=== PATIENT | female | born 1955 | race Caucasian/White ===

== ENCOUNTER 2022-03-28 21:49 | Emergency (ER) | payer MEDICAID, SELFPAY ==
[2022-03-28 21:51] VITALS: BP 183/95; PULSE 101; RESP 18; TEMP 36.7; O2SAT 99; BMI 22.7
[2022-03-28 22:05] VITALS: BMI 25.7
--- NOTE | 2022-03-28 22:19 | PC.NURSE ---
Patient is in with . Patient is currently holding pressure to her nose after blowing it to clear a blood clot and applying afrin spray per md instruction.
--- NOTE | 2022-03-28 22:22 | HMH.EDGENADL ---
Discharge Plan Disposition Patient Disposition: Home, Self-Care Condition: Good Referrals Follow up/Referrals: Provider,Referral, [Primary Care Provider] - See instructions Activity Restrictions/Add. Instructions Additional Instructions/Restrictions: Follow-up with your primary care provider regarding this visit to the emergency department as needed. If you begin to bleed, use Afrin spray as you did today. Blow clots out of whichever side is bleeding and spray Afrin into your nose and hold pressure for 10 to 15 minutes. If you are having hemorrhagic, gloria bleeding that is bright red, return to the emergency department promptly for further evaluation. Clinical Impressions Clinical Impression: Epistaxis Discharge ED Provider: Christian Kidd General Adult HPI General Chief complaint: Epistaxis Stated complaint: NOSE BLEED Time Seen by Provider: 03/28/22 22:00 Mode of Arrival: Wheelchair Source of Information: Patient Limitations: No Limitations Description of Symptoms (Recalled from ER Triage Doc. by RN): pt c/onose bleed since noon today with a brief pause between until 2 and 4pm the pt states that there was no trauma but she is on plavix and has not been able to stop the bleeding but also states that it seems to be starting to clot History of Present Illness HPI narrative: This is a 66-year-old female with history of peripheral arterial disease on aspirin and Plavix who is presenting with epistaxis. Patient states that approximately 10 hours prior to arrival she stood up from her chair, had dripping from her nose which she assumed was sinuses, then realized it was blood. Has been trying to hold pressure since that time, has not had relief of epistaxis. Denies nausea, vomiting, trauma, lightheadedness, shortness of breath, chest pain, or any other concerning symptoms. Related Data Allergies Allergy/AdvReac Type Severity Reaction Status Date / Time No Known Allergies Allergy Verified 03/28/22 22:06 [facility] Disclaimer: The information contained in this section may have been updated after the patient was seen, as this information can be updated by other users. Social History Smoking Status: Former smoker alcohol intake: never current occupational status: unemployed Travel in the last 8 weeks: None ROS Obtained: Yes All systems reviewed & no additional complaints except as documented Physical Exam General General appearance: alert and in no apparent distress Head Head exam: atraumatic, normocephalic and normal inspection Eye Eye exam: Present normal appearance, PERRL and EOMI ENT ENT exam: Present normal exam, mucous membranes moist, TM's normal bilaterally and normal external ear exam; Absent normal oropharynx Expanded ENT Exam Nasal speculum exam: Left: epistaxis and Right: normal Mouth exam: Present other (Venous blood in posterior oropharynx) Neck Neck exam: Present normal inspection, full ROM and trachea midline; Absent meningismus or lymphadenopathy Chest Chest inspection: Present normal inspection and symmetric chest wall rise; Absent tenderness Respiratory Respiratory exam: Present normal lung sounds bilaterally; Absent respiratory distress Cardiovascular Cardiovascular exam: Present regular rate and normal rhythm; Absent JVD Abdominal Exam Abdominal exam: Present soft and normal bowel sounds; Absent distention, tenderness or guarding Extremities Exam Extremities exam: Present normal inspection, full ROM and normal capillary refill; Absent calf tenderness Back Exam Back exam: Present normal inspection; Absent tenderness Neurological Exam Neurological exam: Present alert and oriented X3 Psychiatric Psychiatric exam: Present normal affect and normal mood Skin Skin exam: Present warm, dry, intact and normal color Lymphatic Lymphatic Findings: no adenopathy Medical Decision Making Medical Records Medical records reviewed: Yes I reviewed the patient's medical records. Jose Jean P
[2022-03-28 23:07] VITALS: BP 178/85; PULSE 89; RESP 18; TEMP 36.6; O2SAT 99
== END 2022-03-28 23:09 | disposition home or self-care (01) ==
PROVIDERS: Emergency Provider Emergency Medicine
DX: R04.0 Epistaxis (principal); I73.9 Peripheral vascular disease, unspecified; Z79.01 Long term (current) use of anticoagulants; Z79.82 Long term (current) use of aspirin; Z87.891 Personal history of nicotine dependence
CPT/HCPCS: 99283

== ENCOUNTER 2024-12-06 15:47 | Inpatient (IN) | payer MEDICARE, MEDICAID, SELFPAY ==
--- NOTE | 2024-12-06 15:51 | ECG_ITS ---
APPROVED REPORT Exam: Resting ECG HR:106 bpm ECG Measurements Heart Rate 106 AXES OH 108 P 45 QRSd 86 QRS -33 QT 353 T 63 QTc 415 Conclusion SINUS TACHYCARDIA WITH SHORT OH INTERVAL LEFT AXIS DEVIATION [QRS AXIS < -30] ABNORMAL ECG UNCONFIRMED REPORT Sinus tachycardia. Slight ST depressions in V2, V3 but no reciprocal changes. Does not meet STEMI criteria Electronically signed by : NICOLAS GARCIA, 12/07/2024 14:51:21
[2024-12-06 15:56] VITALS: BP 247/133; PULSE 105; RESP 18; TEMP 36.8; O2SAT 99; BMI 24.2
--- NOTE | 2024-12-06 16:01 | XR_ITS ---
PROCEDURE INFORMATION: Exam: XR Chest Exam date and time: 12/06/2024 4:21 PM Age: 69 years old Clinical indication: Pain; Angina pectoris; Additional info: Cp TECHNIQUE: Imaging protocol: Radiologic exam of the chest. Views: 1 view. COMPARISON: CT ANGIO CHEST 12/06/2024 4:19 PM FINDINGS: Lungs: Unremarkable. No consolidation. Pleural spaces: Unremarkable. No pleural effusion. No pneumothorax. Heart/Mediastinum: Unremarkable. No cardiomegaly. Bones/joints: Unremarkable. IMPRESSION: No acute findings.
--- NOTE | 2024-12-06 16:03 | ED_ITS ---
Discharge Plan Disposition Patient Disposition: Admitted Condition: Fair Clinical Impressions Clinical Impression: Hypertensive emergency Discharge ED Provider: Ganga Khan HPI <Madisyn Cameron APRN - Last Filed: 12/06/24 19:05> General Chief Complaint: Chest Pain Stated Complaint: Chest Pain Time Seen by Provider: 12/06/24 15:51 History of Present Illness HPI narrative: patient is a 69-year-old female PMHx DVTs who presents to the ED for complaints of chest pain x 4 days that is intermittent in nature, feels like a pressure. She arrived via EMS, and route had aspirin and nitro, patient states her chest pain resolved after the nitro however has returned since being in the ED. She denies any previous cardiac history. Does not take any daily medications. Denies being on a blood thinner. Patient has not been evaluated for this before. Related Data Home Medications ?Medication ?Instructions ?Recorded ?Confirmed No Known Home Medications 12/06/2411/19 Allergies Allergy/AdvReac Type Severity Reaction Status Date / Time No Known Allergies Allergy Verified 12/06/24 18:19 PFSH <Madisyn Cameron APRN - Last Filed: 12/06/24 19:05> [facility] Disclaimer: The information contained in this section may have been updated after the patient was seen, as this information can be updated by other users. Medical History (Updated 12/06/24 @ 18:18 by Cande Piña RN) History of peripheral arterial disease History of DVT (deep vein thrombosis) Surgical History (Updated 12/06/24 @ 18:19 by Cande Piña RN) History of left below knee amputation Family History (Updated 12/06/24 @ 18:43 by Cande Piña RN) Other Family history of PA (myocardial infarction) Family history of cancer Family history of coronary artery disease Family history of stroke Social History (Updated 12/06/24 @ 18:44 by Cande Piña RN) Smoking Status: Current every day smoker alcohol intake: never current occupational status: unemployed Travel in the last 8 weeks?: None Have you lived/traveled outside [place] in past 30 days?: No Contact w/someone who lives/traveled outside US past 30 days?: No Exposure to someone with infectious disease in past 14 days?: No Do you have a fever (greater than 100.4 F or 38 C)?: No Have you tested positive for COVID-19?: No Exposed to someone with COVID-19 in past 14 days?: No Do you have a sore throat?: No Do you have a cough?: No Do you have any weakness?: No Do you have any diarrhea?: No Are you experiencing any unusual bleeding?: No Do you have any muscle aches/pain?: No Do you have any abdominal pain?: No Are you experiencing loss of taste or smell?: No <Madisyn Cameron APRN - Last Filed: 12/06/24 19:05> ROS Obtained: Yes Systems reviewed as appropriate & no additional complaints except as documented Physical Exam <Madisyn Cameron APRN - Last Filed: 12/06/24 19:05> General General appearance: alert and in no apparent distress Head Head exam: atraumatic Eye Eye exam: Present PERRL and EOMI Neck Neck exam: Present full ROM Respiratory Respiratory exam: Present normal lung sounds bilaterally; Absent respiratory distress Cardiovascular Cardiovascular exam: Present regular rate Abdominal Exam Abdominal exam: Present soft; Absent tenderness Extremities Exam Extremities exam: Present full ROM Back Exam Back exam: Present normal inspection and full ROM Neurological Exam Neurological exam: Present alert and oriented X3 Skin Skin exam: Present warm and dry HEART Score <Madisyn Cameron APRN - Last Filed: 12/06/24 19:05> HEART Score History (anamnesis): Moderately suspicious ECG: Non-specific disturbance Age: >65 years Risk factors: 1-2 risk factors Troponin: 1-3x normal limit HEART Score: 6 <Ganga Khan MD - Last Filed: 12/06/24 18:07> HEART Score HEART Score assessment performed?: Yes HEART Score: 7 Procedures <Ganga Khan MD - Last Filed: 12/06/24 18:07> Limited Ultrasound Interpretation:: Limited cardiac ultrasound Indication: Chest pain Identified cardiac views: -Cardiac parasternal long axis -Cardiac parasternal short axis -Cardiac apical four-chamber -Cardiac subxiphoid Findings: -Cardiac activity present, however left ventricular ejection fraction appears mildly reduced -Wall motion grossly normal -Pericardial effusion absent -Right heart strain absent Impression: - From above Images were saved to permanent archive The study was technically adequate CPT: 05495 This study was performed by me, and I personally interpreted all images/videos. Based on my clinical judgement, these images were adequate/inadequate and did/did not necessitate further imaging. Critical Care <Ganga Khan MD - Last Filed: 12/06/24 18:07> Critical Care Time Critical Care Time: Yes Attestation: On 12/06/24, the high probability of a clinically significant, sudden or life threatening deterioration of the following system(s) required my full and direct attention, intervention and personal management. The time I documented below is in addition to time spent performing reported procedures but includes the following listed in this critical care notation. Total Time Total Critical Care Time: 35 Medical Decision Making <Madisyn Cameron APRN - Last Filed: 12/06/24 19:05> Jose Inquiry Pt receiving controlled substance: No Vital Signs Vital Signs: 12/06/24 15:56 12/06/24 15:56 12/06/24 16:13 Temperature 98.3 F 98.3 F Temperature Source Oral Pulse Rate 105 H Pulse Rate [Right] 105 H Respiratory Rate 18 18 Blood Pressure 247/133 H 227/114 H Blood Pressure [Right Arm] 247/133 H Blood Pressure Mean [Right Arm] 171 Blood Pressure Source Blood Pressure Position 02 Sat by Pulse Oximetry 99 99 Oxygen Delivery Method 12/06/24 17:54 12/06/24 17:54 Temperature 98.0 F Temperature Source Oral Pulse Rate 110 H 108 H Pulse Rate [Right] Respiratory Rate 20 Blood Pressure 175/110 H Blood Pressure [Right Arm] Blood Pressure Mean [Right Arm] Blood Pressure Source Automatic Cuff Blood Pressure Position Sitting 02 Sat by Pulse Oximetry Oxygen Delivery Method Room Air Lab Data Labs: Lab Results 12/06/24 16:00: WBC 8.9, RBC 5.43 H, Hgb 14.6, Hct 46.3, MCV 85.3, MCH 26.9 L, M CHC 31.5 L, RDW 15.2, Plt Count 328, MPV 10.7 H, Neut % (Auto) 65.8, Lymph % (Auto) 25.3, [place] % (Auto) 5.7, Eos % (Auto) 1.4, Baso % (Auto) 1.6, Neut # (Auto) 5.8, Lymph # (Auto) 2.3, [place] # (Auto) 0.5, Eos # (Auto) 0.1, Baso # (Auto) 0.1, Sodium 138, Potassium 4.2, Chloride 101, Carbon Dioxide 24, Anion Gap 17.2 H, BUN 17, Creatinine 1.00, Estimated Creat Clear 59, Estimated GFR 55 L, Est GFR ( Amer) 67, Glucose 142 H, Calcium 9.9, Total Bilirubin 0.6, AST 28, ALT 15, Alkaline Phosphatase 164 H, Troponin I 0.43 H, NT-Pro-B Natriuret Pep 2060 H, Total Protein 9.5 H, Albumin 5.0, Globulin 4.5 H, Albumin/Globulin Ratio 1.1 12/06/24 16:00 12/06/24 16:00 Response Orders (Tests/Meds): ED MEDICATIONS Generic Name Dose Route Start Last Admin Trade Name Freq PRN Reason Stop Dose Admin Acetaminophen 650 mg 12/06/24 18:10 Acetaminophen 325mg Tab PO 01/05/25 18:09 Q4HP PRN Fever or Mild Pain (1-3) Carvedilol 12.5 mg 12/06/24 17:45 12/06/24 18:36 Carvedilol 12.5mg Tablet PO 01/05/25 17:44 12.5 mg BID ELAINE Administration Enoxaparin Sodium 40 mg 12/07/24 09:00 Enoxaparin 40mg/0.4ml Syringe SUBCUT 01/06/25 08:59 DAILY ELAINE Sodium Nitroprusside 50 mg/ 252 mls @ 6.173 mls/hr 12/06/24 17:00 12/06/24 18:50 Dextrose IV 01/05/25 16:59 0.3 mcg/kg/min .Q24H ELAINE 6.17 mls/hr Protocol Titration 0.3 MCG/KG/MIN Ondansetron HCl 4 mg 12/06/24 18:11 Ondansetron 4mg/2ml Vial IV 01/05/25 18:10 Q6HP PRN Nausea Discontinued Medications Generic Name Dose Route Start Last Admin Trade Name Freq PRN Reason Stop Dose Admin Nitroglycerin/Dextrose 250 mls @ 1.5 mls/hr 12/06/24 16:15 12/06/24 17:02 Nitroglycerin 50mg/250ml D5w IV 01/05/25 16:14 Infused .Q24H ELAINE Titration Protocol 5 MCG/MIN Iopamidol 80 ml 12/06/24 16:18 12/06/24 16:19 Iopamidol-370 (76%);100ml Bottle IV 12/06/24 16:19 80 ml ONCE ONE Administration Labetalol HCl 5 mg 12/06/24 16:07 12/06/24 16:13 Labetalol 20mg/4ml Syringe IV 12/06/24 16:08 Not Given ONCE ONE Sodium Chloride 50 ml 12/06/24 16:18 12/06/24 16:19 0.9 % Sodium Chloride 50 Ml Vial IV 12/06/24 16:19 50 ml ONCE ONE Administration ORDERS Category Date Time Status CTA Chest [CT angio chest - dissection] Stat Cat Scan 12/06/24 16:06 Completed CXR --portable [XR chest portable] Stat Exams 12/06/24 16:01 Completed POCUS Point of Care (ER Only) Stat Exams 12/06/24 16:55 Completed BNP [NT Pro Brain Natriuretic Pep.] Stat Lab 12/06/24 16:00 Completed CBC w/Auto Diff [Complete Blood Count Auto Diff] Stat Lab 12/06/24 16:00 Completed CMP [Comprehensive Metabolic Panel] Stat Lab 12/06/24 16:00 Completed Trop I [Troponin I] Stat Lab 12/06/24 16:00 Completed Troponin I Q3H Lab 12/06/24 19:15 Ordered Troponin I Q3H Lab 12/06/24 22:15 Ordered MDM Narrative Medical Decision Narrative: In summary, patient is a 69-year-old female PMHx DVTs, HTN, HLD (has not taken daily medication since 2021) who presents to the ED for complaints of chest pain x 4 days that is intermittent in nature, feels like a pressure. She arrived via EMS, and route had aspirin and nitro, patient states her chest pain resolved after the nitro however has returned since being in the ED. She denies any previous cardiac history. Does not take any daily medications. Denies being on a blood thinner. Patient has not been evaluated for this before. She declines any additional pain medication at this time. Denies fever, chills, body aches, headache, visual changes, back pain, shortness of breath, abdominal pain, nausea, vomiting. Upon initial evaluation she is alert, oriented and cooperative. She is hypertensive with her systolic in the 200s. Her physical exam is unremarkable. Patient has a left lower extremity amputation which she states is from multiple blood clots. Differential diagnosis include ACS, dissection, pneumonia, pneumothorax, PE, infectious process, electrolyte abnormality, among others. Discussed with patient we will proceed with labs, EKG, chest x-ray. CBC unremarkable for any leukocytosis, stable H&H. CMP remarkable for anion gap 17.2, glucose 142, alk phos 164, troponin 0.43. BNP 2,060. Chest x-ray unremarkable for any acute findings. Emergent chest CTA shows no evidence of pulmonary embolus or dissection. Patient started on a nitroglycerin drip, attending consulted Dr. Munoz. Patient to be admitted to the ICU and accepted by the hospitalist. Ganga Khan MD Patient was noted to be significantly hypertensive on arrival with systolic blood pressures in the 240s and diastolic blood pressures in the 110 range. She reported that her chest pain initially improved but had returned upon arrival to the emergency department. She did receive aspirin and 1 sublingual nitroglycerin prior to arrival. She was initially started on nitroglycerin drip on arrival without improvement in her blood pressure despite up titration. Bedside cardiac ultrasound was performed by me personally. She has globally mildly reduced left ventricular ejection fraction but no pericardial effusion. No focal wall motion abnormalities. CT imaging was interpreted by me personally prior to official radiology read. No evidence of aortic dissection or other acute pathology within the lungs or chest. Chest x-ray without widening of the mediastinum. Patient's initial troponin came back elevated at 0.4. All EKGs were interpreted by me personally. EMS twelve-lead showed some depressions in V2, V3, V4 and V5 without reciprocal changes. Initial EKG showed improvement in ST depressions. Repeat EKG with posterior leads was obtained without evidence of posterior STEMI. I discussed patient's case with Dr. Munoz with cardiology who recommended switching to nitroprusside drip for tighter blood pressure control. This was ordered and improved her blood pressure to 180s systolic. Given hypertensive emergency with NSTEMI, will discuss patient's case with Dr. Santos call out for admission. He agreed to accept the patient for admission. <Ganga Khan MD - Last Filed: 12/06/24 18:07> Vital Signs Vital Signs: 12/06/24 15:56 12/06/24 15:56 12/06/24 16:13 Temperature 98.3 F 98.3 F Temperature Source Oral Pulse Rate 105 H Pulse Rate [Right] 105 H Respiratory Rate 18 18 Blood Pressure 247/133 H 227/114 H Blood Pressure [Right Arm] 247/133 H Blood Pressure Mean [Right Arm] 171 Blood Pressure Source Blood Pressure Position 02 Sat by Pulse Oximetry 99 99 Oxygen Delivery Method 12/06/24 17:54 12/06/24 17:54 Temperature 98.0 F Temperature Source Oral Pulse Rate 110 H 108 H Pulse Rate [Right] Respiratory Rate 20 Blood Pressure 175/110 H Blood Pressure [Right Arm] Blood Pressure Mean [Right Arm] Blood Pressure Source Automatic Cuff Blood Pressure Position Sitting 02 Sat by Pulse Oximetry Oxygen Delivery Method Room Air Lab Data Labs: Lab Results 12/06/24 16:00: WBC 8.9, RBC 5.43 H, Hgb 14.6, Hct 46.3, MCV 85.3, MCH 26.9 L, M CHC 31.5 L, RDW 15.2, Plt Count 328, MPV 10.7 H, Neut % (Auto) 65.8, Lymph % (Auto) 25.3, [place] % (Auto) 5.7, Eos % (Auto) 1.4, Baso % (Auto) 1.6, Neut # (Auto) 5.8, Lymph # (Auto) 2.3, [place] # (Auto) 0.5, Eos # (Auto) 0.1, Baso # (Auto) 0.1, Sodium 138, Potassium 4.2, Chloride 101, Carbon Dioxide 24, Anion Gap 17.2 H, BUN 17, Creatinine 1.00, Estimated Creat Clear 59, Estimated GFR 55 L, Est GFR ( Amer) 67, Glucose 142 H, Calcium 9.9, Total Bilirubin 0.6, AST 28, ALT 15, Alkaline Phosphatase 164 H, Troponin I 0.43 H, NT-Pro-B Natriuret Pep 2060 H, Total Protein 9.5 H, Albumin 5.0, Globulin 4.5 H, Albumin/Globulin Ratio 1.1 Response Orders (Tests/Meds): ED MEDICATIONS Generic Name Dose Route Start Last Admin Trade Name Freq PRN Reason Stop Dose Admin Acetaminophen 650 mg 12/06/24 18:10 Acetaminophen 325mg Tab PO 01/05/25 18:09 Q4HP PRN Fever or Mild Pain (1-3) Carvedilol 12.5 mg 12/06/24 17:45 12/06/24 18:36 Carvedilol 12.5mg Tablet PO 01/05/25 17:44 12.5 mg BID ELAINE Administration Enoxaparin Sodium 40 mg 12/07/24 09:00 Enoxaparin 40mg/0.4ml Syringe SUBCUT 01/06/25 08:59 DAILY ELAINE Sodium Nitroprusside 50 mg/ 252 mls @ 6.173 mls/hr 12/06/24 17:00 12/06/24 18:50 Dextrose IV 01/05/25 16:59 0.3 mcg/kg/min .Q24H ELAINE 6.17 mls/hr Protocol Titration 0.3 MCG/KG/MIN Ondansetron HCl 4 mg 12/06/24 18:11 Ondansetron 4mg/2ml Vial IV 01/05/25 18:10 Q6HP PRN Nausea Discontinued Medications Generic Name Dose Route Start Last Admin Trade Name Freq PRN Reason Stop Dose Admin Nitroglycerin/Dextrose 250 mls @ 1.5 mls/hr 12/06/24 16:15 12/06/24 17:02 Nitroglycerin 50mg/250ml D5w IV 01/05/25 16:14 Infused .Q24H ELAINE Titration Protocol 5 MCG/MIN Iopamidol 80 ml 12/06/24 16:18 12/06/24 16:19 Iopamidol-370 (76%);100ml Bottle IV 12/06/24 16:19 80 ml ONCE ONE Administration Labetalol HCl 5 mg 12/06/24 16:07 12/06/24 16:13 Labetalol 20mg/4ml Syringe IV 12/06/24 16:08 Not Given ONCE ONE Sodium Chloride 50 ml 12/06/24 16:18 12/06/24 16:19 0.9 % Sodium Chloride 50 Ml Vial IV 12/06/24 16:19 50 ml ONCE ONE Administration ORDERS Category Date Time Status CTA Chest [CT angio chest - dissection] Stat Cat Scan 12/06/24 16:06 Completed CXR --portable [XR chest portable] Stat Exams 12/06/24 16:01 Completed POCUS Point of Care (ER Only) Stat Exams 12/06/24 16:55 Completed BNP [NT Pro Brain Natriuretic Pep.] Stat Lab 12/06/24 16:00 Completed CBC w/Auto Diff [Complete Blood Count Auto Diff] Stat Lab 12/06/24 16:00 Completed CMP [Comprehensive Metabolic Panel] Stat Lab 12/06/24 16:00 Completed Trop I [Troponin I] Stat Lab 12/06/24 16:00 Completed Troponin I Q3H Lab 12/06/24 19:15 Ordered Troponin I Q3H Lab 12/06/24 22:15 Ordered MDM Narrative Medical Decision Narrative: In summary, patient is a 69-year-old female PMHx DVTs who presents to the ED for complaints of chest pain x 4 days that is intermittent in nature, feels like a pressure. She arrived via EMS, and route had aspirin and nitro, patient states her chest pain resolved after the nitro however has returned since being in the ED. She denies any previous cardiac history. Does not take any daily medications. Denies being on a blood thinner. Patient has not been evaluated for this before. She declines any additional pain medication at this time. Denies fever, chills, body aches, headache, visual changes, back pain, shortness of breath, abdominal pain, nausea, vomiting. Upon initial evaluation she is alert, oriented and cooperative. She is hemodynamically stable. Her physical exam is unremarkable. Patient has a left lower extremity amputation which she states is from multiple blood clots. Differential diagnosis include ACS, dissection, pneumonia, pneumothorax, PE, infectious process, electrolyte abnormality, among others. Discussed with patient we will proceed with labs, EKG, chest x-ray. Ganga Khan MD Patient was noted to be significantly hypertensive on arrival with systolic blood pressures in the 240s and diastolic blood pressures in the 110 range. She reported that her chest pain initially improved but had returned upon arrival to the emergency department. She did receive aspirin and 1 sublingual nitroglycerin prior to arrival. She was initially started on nitroglycerin drip on arrival without improvement in her blood pressure despite up titration. Bedside cardiac ultrasound was performed by me personally. She has globally mildly reduced left ventricular ejection fraction but no pericardial effusion. No focal wall motion abnormalities. CT imaging was interpreted by me personally prior to official radiology read. No evidence of aortic dissection or other acute pathology within the lungs or chest. Chest x-ray without widening of the mediastinum. Patient's initial troponin came back elevated at 0.4. All EKGs were interpreted by me personally. EMS twelve-lead showed some depressions in V2, V3, V4 and V5 without reciprocal changes. Initial EKG showed improvement in ST depressions. Repeat EKG with posterior leads was obtained without evidence of posterior STEMI. I discussed patient's case with Dr. Muonz with cardiology who recommended switching to nitroprusside drip for tighter blood pressure control. This was ordered and improved her blood pressure to 180s systolic. Given hypertensive emergency with NSTEMI, will discuss patient's case with Dr. Santos call out for admission. He agreed to accept the patient for admission.
--- NOTE | 2024-12-06 16:06 | CT_ITS ---
PROCEDURE INFORMATION: Exam: CTA Chest With Contrast Exam date and time: 12/06/2024 4:19 PM Age: 69 years old Clinical indication: Pain; Angina pectoris; Additional info: Cp TECHNIQUE: Imaging protocol: Computed tomographic angiography of the chest with contrast. Exam focused on the arteries. 3D rendering (Not supervised by radiologist): MIP and/or 3D reconstructed images were created by the technologist. Radiation optimization: All CT scans at this facility use at least one of these dose optimization techniques: automated exposure control; mA and/or kV adjustment per patient size (includes targeted exams where dose is matched to clinical indication); or iterative reconstruction. Contrast material: ISOVUE 370; Contrast volume: 80 ml; Contrast route: INTRAVENOUS (IV); COMPARISON: CT ANGIO CHEST 12/06/2024 4:19 PM FINDINGS: Pulmonary arteries: Normal. No pulmonary emboli. Aorta: Diffuse aortic atherosclerosis without aneurysm or acute aortic syndrome.. No aortic aneurysm. No aortic dissection. Lungs: Unremarkable. No consolidation. No masses. Pleural spaces: Unremarkable. No pneumothorax. No pleural effusion. Heart: Unremarkable. No cardiomegaly. No pericardial effusion. Coronary arteries: Moderate coronary calcium. Lymph nodes: Unremarkable. No enlarged lymph nodes. Bones/joints: Unremarkable. No acute fracture. Soft tissues: Unremarkable. IMPRESSION: 1. No evidence of pulmonary embolus or other acute process. 2. Moderate coronary calcium.
[2024-12-06 16:07] LABS: Hematocrit 46.3 % (37.0-47.0); Hemoglobin 14.6 g/dL (12.2-16.2); Immature Granulocytes % 0.2 %; Mean Corpuscular HGB Conc 31.5 g/dL (31.8-35.4); Mean Corpuscular Hemoglobin 26.9 pg (27.0-31.2); Mean Corpuscular Volume 85.3 fl (81-99); Nucleated Red Blood Cells % 0 %; Platelet Count 328 K/mm3 (142-424); Red Blood Count 5.43 M/mm3 (4.20-5.40); Red Cell Distribution Width-SD 47.7 fL; White Blood Count 8.9 K/mm3 (4.8-10.8)
--- NOTE | 2024-12-06 16:07 | PC.NURSE ---
1531 prior to patients arrival, EMS faxed over an EKG to rule out a STEMI. because they saw depression and elevation. Dr Khan looked at the ekg and advised that it was not a STEMI. Called EMS back and advised them of what Dr Khan said.
[2024-12-06 16:13] VITALS: BP 227/114
[2024-12-06 16:17] LABS: Albumin Level 5.0 g/dl (3.5-5.0); Chloride 101 mmol/L (98-107)
[2024-12-06 16:18] LABS: Potassium 4.2 mmoL/L (3.5-5.1); Sodium 138 mmol/L (136-145)
[2024-12-06] MEDS: IOPAMIDOL-370 (76%);100ML BOTTLE 80 ML IV (16:19)
[2024-12-06] MEDS: 0.9 % SODIUM CHLORIDE 50 ML VIAL IV (16:19)
[2024-12-06 16:20] LABS: Alanine Aminotransferase 15 U/L (12-78); Aspartate Amino Transferase 28 U/L (14-36); Blood Urea Nitrogen 17 mg/dl (7-17); Creatinine Clearance Estimated 59 mL/min (50-200); Creatinine,Serum 1.00 mg/dl (0.52-1.04); Estimated Glomerular Filt Rate 55 ml/min (>60); GFR (African American) 67 ML/MIN (>60)
[2024-12-06 16:21] LABS: Albumin/Globulin Ratio 1.1 (1.1-1.8); Alkaline Phosphatase 164 U/L (38-126); Anion Gap 17.2 mEq/L (5-15); Bilirubin,Total 0.6 mg/dl (0.2-1.3); Calcium 9.9 mg/dl (8.4-10.2); Carbon Dioxide 24 mmol/L (22.0-30.0); Globulin 4.5 g/dL (1.3-3.2); Glucose 142 mg/dl (74-100); Total Protein,Serum 9.5 g/dl (6.3-8.2)
--- OUTSIDE RECORDS SUMMARY | 2024-12-06 16:22 | XMS_ITS | Clinical Summary ---
[facility] Organization [facility] Address [address] [place] [address] Care Team Providers Care General Farm Manager Name Role Phone Unavailable Primary Care Provider Unavailabl e Social History Tobacco Use Types Packs/Day Years Used Date Smoking Tobacco: Never Assessed Abuse Screen Answer Date Recorded Unsafe at Home or Work/School Not on file Feels Threatened by Someone? Not on file 12/2022 Does Anyone Keep You from Co ntacting Others or Doint Things Outside the Home? Not on file 01/27/2023 Physical Sign of Abuse Present Not on file 1 Housing Stability Answer Date Recorded Current Living Arrangements Not on file 12/2022 Potentially Unsafe Housing Conditions Not on luis fernando e 01/27/2023 Family and Community Support Answer Jimenez e Recorded Help with Day-to-Day Activities Not on file 01/27/2023 Lonely or Isolated Not on file 01/27/2023 Employment Answer Date Recorded Do you want help finding or keeping work or a veena b? Not on file 01/27/2023 Disabilities Answer Date Recorded Concentrating, Remembering, or Making Decisions Difficulty Not on file 01/27/2023 Doing Errands Independently Difficulty Not on fi le 01/27/2023 Education Answer Date Recorded Help with school or training? Not on file Preferred Language Not on file 01/27/2023 Comments Unknown Sex and Gender Information Value Date Recorded Sex Assigned at Not on file Legal Sex Female 11:00 AM EDT Gender Identity Not on file Sexual Orientation Not on file Plan of Treatment Health Maintenance Due Date Last Done Comments ANNUAL PHYSICAL 1955 DXA SCAN 1957 HEPATITIS C SCREENING 1957 TDAP/TD VACCINES (1 - Tdap) 1976 MAMMOGRAM 1997 COLOGUARD 2002 COLON CANCER SCREENING 5 YEAR SIGMOIDOSCOPY 2002 COLONOSCOPY 2002 COLORECTAL CANCER SCREENING 2002 CT COLONOGRAPHY 2002 FECAL OCCULT BLOOD TEST 2002 FIT Testing (1 year) 2002 Pneumococcal Vaccine 50+ (1 of 1 - PCV) 06/22/2007 ZOSTER VACCINE (1 of 2) 06/22/2007 COVID-19 Vaccine ( - 2023- season) 2023 INFLUENZA VACCINE 01/19/2025 Insurance PAS[employer] BY [employer]
--- OUTSIDE RECORDS SUMMARY | 2024-12-06 16:22 | XMS_ITS | Clinical Summary ---
Author Organization [facility] Address [address] [place] [address] Phone Care Team Providers Care Electrocardiographic Technician Name Role Phone Nonstaff, Referring Primary Care Provider Unavai lable Allergies No known active allergies Medications REPATHA SURECLICK 140 mg/mL SubQ Pen Injector INJECT ONE (1) MILLILITER (140 MG) BY SUBCUTANEOUS ROUTE EVERY TWO (2) WEEKS IN THE ABDOMEN THIGH OR OUTER AREA OF UPPER ARM (ROTATE SITES 1 Active ergocalciferol (DRISDOL) 1,250 mcg (50,000 unit) Oral Capsule Take 50,000 Units by mouth once a week. Patient takes every . 1 Active pantoprazole (PROTONIX) 40 mg Oral Tablet, Delayed Release (E.C.) TAKE ONE (1) TABLET EVERY DAY 1 Active rosuvastatin (CRESTOR) 10 mg Oral Tablet Take 10 mg by mouth nightly. 2 Active escitalopram oxalate (LEXAPRO) 10 mg Oral Tablet 2 Active carvediloL (COREG) 12.5 mg Oral Tablet Take 12.5 mg by mouth 2 times daily. Active aspirin 81 mg Oral Tablet, Chewable Take 81 mg by mouth daily. Active HYDROcodone-cammy taminophen (NORCO) 7.5-325 mg Oral TabletIndicatio ns:S/P above knee amputation, left (HCC) Take 1-2 Tablets by mouth every 6 hours as needed for Acute Pain (R52). 30 Tablet 3 Active Active Problems Problem Noted Date Diagnosed Date Above knee amputation of left lower extremity Acute deep vein thrombosis of left popliteal vei n 02/28/2022 Acute deep vein thrombosis ( DVT) of popliteal vein of left lower extremity 02/28/2022 Critical limb ischemia of left lower extremity 1 04/22/2021 Overview (02/20/2022): Critical limb ischemia, requiring tPA lysis and anticoagulation. Continue to monitor Symptomatically improved after intervention Superficial femoral artery occlusion 02/19/2022 Atherosclerosis of [place] of extremity with rest pain 02/19/2022 Urinary retention 02/19/2022 Vascular disease 02/18/2022 Hyperlipidemia 12/06/2019 PVD (peripheral vascular disease) 12/06/2019 Overview (02/20/2022): Required interventional radiology guided tPA lysis. Clinically improved after lysis and anticoagulation. Tobacco abuse 12/06/2019 Left carotid artery stenosis 12/02/2019 Overview (12/02/2019): Added automatically from request for surgery [id number] Immunizations Immunization Administration Dates Next Due Influenza Virus Vaccine Quadrivalant, Flublok Surgical History Surgery Date Site/Laterality Comments HYSTERECTOMY ANGIOPLASTY peripheral stents bilateral COLONOSCOPY CAROTID ENDARTERECTOMY 12/06/2019 Neck/Left Left carotid endarterectomy; Surgeon: Kendall Marinelli Jr., MD; Location: [facility] MA[facility] OR; Service: Vascular IR ANGIOGRAM EXTREMITY LEFT 02/18/2022 IR ANGIOGRAM EXTREMITY LEFT 02/18/2022 Vick Torres MD [facility] IR ULTRASOUND GUIDED VASCULA R ACCESS 02/18/2022 IR ULTRASOUND GUIDED VASCULAR ACCESS 02/18/2022 Vick Torres MD [facility] IR ABDOMINAL AORTOGRAM SERIALOGRAM 02/18/2022 IR ABDOMINAL AORTOGRAM SERIALOGRAM 02/18/2022 Vick Torres MD [facility] IR TRANSCATH ARTERIAL INFUSI ON THROMBOLYSIS INITIAL TREAT 02/18/2022 IR TRANSCATH ARTERIAL INFUSION THROMBOLYSIS INITIAL TREAT 02/18/2022 Vick Torres MD [facility] IR TRANS ART OR FILEMON FOR THRO MB TREAT SUBSQ DAY FU CATH CONT INJ 02/19/2022 IR TRANS ARTERIAL OR VENOUS FOR THROMB TREAT SUBSQ DAY FU CATH CONT INJECT 02/19/2022 Vick Torres MD [facility] IR REVAS FEM POP ART UNILAT W CLIPPER AND TURNER 02/19/2022 IR REVAS FEM POP ART UNILAT W CLIPPER AND TURNER 02/19/2022 Vick Torres MD [facility] IR TRANS ART OR FILEMON FOR THRO MB SUBSQ DAY FU CATH CONT INJ+CLOS 02/19/2022 IR TRANS ART OR VENOUS FOR THROMB SUBSQ DAY FU CATH CONT INJECT AND CLOSURE 02/19/2022 Vick Torres MD [facility] IR REVAS FEM POP ART UNILAT W CLIPPER AND TURNER 02/19/2022 IR REVAS FEM POP ART UNILAT W CLIPPER AND TURNER 02/19/2022 Vick Torres MD [facility] IR FEMORAL BYPASS 03/01/2022 Leg/Left Left femoral to tibial bypass graft using insito greater saphenous vein. Thrombectomy posterior tibial artery, left deep femoral endarterectomy.; Surgeon: Matheus Menon MD; Location: [facility]; Service: Vascular ABOVE KNEE AMPUTATION 03/03/2022 Leg/Left left above the knee amputation; Surgeon: Kendall Marinelli Jr., MD; Location: [facility]; Service: General Medical History Medical History Date Comments Hyperlipidemia Hypertension Peripheral vascular disease Smoker Carotid artery disease Chronic kidney disease Family History Medical History Relation Name Comments High Blood Pressure Father High Cholesterol Father High Blood Pressure Mother High Cholesterol Mother Cancer Other whole body Cancer Sister ovarian Relation Name Status Comments Father Mother Other Sister Social History Tobacco Use Types Packs/Day Years Used Date Smoking Tobacco: Every Day Cigarettes 0.3 51.6 Started: 04/21/1973 Smokeless Tobacco: Never Tobacco Cessation:Ready to Q uit: No; Counseling Given: Yes Comments:a couple cigarettes a day Alcohol Use Standard Drinks/Week Comments Never 0 (1 standard drink = 0.6 oz pur e alcohol) AUDIT-C Answer Date Recorded Q1: How often do you have a drink containing alc ohol? Never 08/03/2020 Average Number of Drinks Not on file 021 Frequency of Binge Drinking Not on file 07/20 Overall Financial Resource Strain (CARDIA) Answe r Date Recorded How hard is it for you to pa y for the very basics like food, housing, medical care, and heating? Not hard at all 03/04/2022 Hunger Vital Sign Answer Date Recorded Within the past 12 months, y ou worried that your food would run out before you got the money to buy more. Never true 03/04/20 22 Within the past 12 months, t he food you bought just didn't last and you didn't have money to get more. Never true 03/04/2022 PRAPARE - Transportation Answer Date Re corded In the past 12 months, has l ack of transportation kept you from medical appointments or from getting medications? No 02/19 In the past 12 months, has l ack of transportation kept you from meetings, work, or from getting things needed for daily living? No 03/04/2022 Comments No Sex and Gender Information Value Date Recorded Sex Assigned at Not on file Legal Sex Female 4:44 PM EDT Gender Identity Not on file Sexual Orientation Not on file Obstetrics History Last Filed Vital Signs Vital Sign Reading Time Taken Comments Blood Pressure 200/79 05/02/2022 12:50 PM EST Pulse 77 05/02/2022 12:50 PM EST Temperature 36.9 C (98.4 F) 05/02/2022 12:45 PM EST Respiratory Rate 16 03/06/2022 5:27 PM EST Oxygen Saturation 100% 03/06/2022 5:27 PM EST Inhaled Oxygen Concentration - - Weight 68 kg (150 lb) 05/02/2022 12:45 PM EST Height 170.2 cm (5' 7 ) 05/02/2022 12:45 PM EST Body Mass Index 23.49 05/02/2022 12:45 PM EST Plan of Treatment Health Maintenance Due Date Last Done Comments Annual Wellness Exam 1960 Hepatitis C Screening 06/22/1975 Pneumococcal Vaccine 50+ (1 of 2 - PCV) 1976 Colonoscopy 2002 FIT 2002 Sigmoidoscopy 2002 Virtual Colonography 2002 Zoster (1 of 2) 06/22/2007 RSV or 60+ (1 - Risk 60-74 years 1-dose series) 2017 Cologuard 06/10/2022 06/10/2019 Colon Cancer Screening 06/10/2022 Bone Density Screening 2022 Breast Cancer Screening 11/08/2023 11/07/2021 COVID-19 Vaccine (1 - 4-25 season) 2023 Influenza Vaccine (#1) 2024 2, 01/17/2021, 03/07/2020, Additional history exists DTaP/TDaP/Td (2 - Td or Tdap) 06/07/2029 06/07/2019 Hepatitis B Vaccine Aged Out No longe r eligible based on patient's age to complete this topic Meningococcal B Vaccine Aged Out No l onger eligible based on patient's age to complete this topic Procedures Procedure Name Priority Date/Time Associated Diagnosis Comments MM MAMMO DIGITAL EMERALD SCREEN BILAT Routine 11/07/2021 12:21 PM EDT Screening mammogram, encounter for from Last 3 Months or Most Recently Relevant to Health Maintenance Results * MM MAMMO DIGITAL EMERALD SCREEN BILAT (11/07/2021 12:21 PM EDT) Anatomical Region Laterality Modality Breast Bilateral Mammography 11/16/2021 3:41 PM EDT Impressions 11/16/2021 3:41 PM EDT Negative ([id number]) ~ RECOMMENDATION: Routine screening mammogram in 1 year. ~ DISCLAIMER * Any patient with a palpable abnormality, unexplained by breast imaging, should be managed on clinical basis by the attending physician. * Breast imaging has a false negative rate of 15%. * The patient was notified by mail of the results of this examination. *The patient's information was entered into a reminder system with a target due date for the next mammogram, in accordance with the [employer] and the Society of Breast Imaging recommendations. Narrative 11/16/2021 3:41 PM EDT Procedure:MM MAMMO DIGITAL EMERALD SCREEN BILAT ~ Reason for exam: screening, asymptomatic. Z12.31-Encounter for screening mammogram for malignant neoplasm of [id number] ~ MM MAMMO DIGITAL EMERALD SCREEN BILAT Bilateral CC and MLO view(s) were taken. There are scattered fibroglandular densities. Prior study comparison: November 30, 2018. No significant interval change. ~ Procedure Note Tammy Mckee MD - 11/16/2021 Procedure:MM MAMMO DIGITAL EMERALD SCREEN BILAT ~ Reason for exam: screening, asymptomatic. Z12.31-Encounter for screening mammogram for malignant neoplasm of [id number] ~ MM MAMMO DIGITAL EMERALD SCREEN BILAT Bilateral CC and MLO view(s) were taken. There are scattered fibroglandular densities. Prior study comparison: November 30, 2018. No significant interval change. ~ IMPRESSION: Negative ([id number]) ~ RECOMMENDATION: Routine screening mammogram in 1 year. ~ DISCLAIMER * Any patient with a palpable abnormality, unexplained by breast imaging, should be managed on clinical basis by the attending physician. * Breast imaging has a false negative rate of 15%. * The patient was notified by mail of the results of this examination. *The patient's information was entered into a reminder system with atarget due date for the next mammogram, in accordance with the [employer] and the Society of Breast Imaging recommendations. Janett Fulton [facility] Final Result from Last 3 Months or Most Recently Relevant to Health Maintenance Insurance [id number] Advance Directives For more information, please contact: [phone] * Full Code (Latest Code Status on File) Date Activated Date Inactivated Comments 02/28/2022 9:04 PM 03/06/2022 10:00 PM * Full Code Date Activated Date Inactivated Comments 02/18/2022 12:17 PM 02/20/2022 8:30 PM * Full Code Date Activated Date Inactivated Comments 12/06/2019 7:53 PM 12/07/2019 1:53 PM Care Teams Electrocardiographic Technician Relationship Specialty Start Date End Date Nonstaff, Referring PCP - General 03/01/22
[2024-12-06] MEDS: NITROGLYCERIN IN 5 % DEXTROSE 250 ML 1.5 MG IV (16:29)
[2024-12-06 16:39] LABS: Troponin I 0.43 ng/ml (0.00-0.034)
--- NOTE | 2024-12-06 16:54 | ECG_ITS ---
APPROVED REPORT Exam: Resting ECG HR:95 bpm ECG Measurements Heart Rate 95 AXES GA 140 P 66 QRSd 84 QRS -43 QT 386 T 30 QTc 439 Conclusion SINUS RHYTHM LEFT AXIS DEVIATION [QRS AXIS < -30] PATTERN CONSISTENT WITH PULMONARY DISEASE MODERATE ST DEPRESSION [0.05+ mV ST DEPRESSION] ABNORMAL ECG UNCONFIRMED REPORT Normal sinus rhythm. No ST elevations or depressions Electronically signed by : NICOLAS GARCIA, 12/07/2024 14:51:42
--- NOTE | 2024-12-06 17:00 | ECG_ITS ---
APPROVED REPORT Exam: Resting ECG HR:101 bpm ECG Measurements Heart Rate 101 AXES DC 108 P 55 QRSd 86 QRS -42 QT 351 T 41 QTc 409 Conclusion SINUS TACHYCARDIA WITH SHORT DC INTERVAL LEFT AXIS DEVIATION [QRS AXIS < -30] ST DEVIATION AND MODERATE T-WAVE ABNORMALITY, CONSIDER LATERAL ISCHEMIA [-0.1+ mV T-WAVE IN I/aVL/V5/V6] ABNORMAL ECG UNCONFIRMED REPORT Posterior lead placements with V4, V5 and V6. No ST elevation or depression. Normal sinus rhythm Electronically signed by : NICOLAS GARCIA, 12/07/2024 14:52:08
--- NOTE | 2024-12-06 17:15 | PC.NURSE ---
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 States she will call back.
[2024-12-06] MEDS: NITROPRUSSIDE SODIUM 50 MG in DEXTROSE 5 % IN WATER 250 ML 6.17 MG IV (17:16)
[2024-12-06 17:37] LABS: NT Pro Brain Natriuretic Pep. 2060 pg/mL (0-125)
--- NOTE | 2024-12-06 17:53 | PC.NURSE ---
report given to GEE Castellon in the ICU
[2024-12-06 17:54] VITALS: BP 175/110; PULSE 108; PULSE 110; RESP 20; TEMP 36.7; O2SAT 98
--- NOTE | 2024-12-06 18:18 | PC.NURSE ---
Pt arrived to floor @ 1810
[2024-12-06] MEDS: CARVEDILOL 12.5MG TABLET 12.5 MG PO (18:36)
[2024-12-06 18:46] VITALS: O2SAT 96
--- NOTE | 2024-12-06 19:01 | PC.NURSE ---
Protocol CRE swab refused by pt.
[2024-12-06 20:00] VITALS: BP 156/91; PULSE 73; RESP 18; TEMP 36.7
[2024-12-06 20:51] VITALS: PULSE 64
[2024-12-06 21:00] LABS: Troponin I 2.58 ng/ml (0.00-0.034)
--- NOTE | 2024-12-06 21:23 | PC.NURSE ---
Troponin critical at 2.58. Hospitalist aware.
[2024-12-06] MEDS: ATORVASTATIN 40MG TABLET 40 MG PO (21:26)
[2024-12-06] MEDS: AMLODIPINE 10MG TABLET 10 MG PO (21:30)
--- NOTE | 2024-12-06 21:41 | ECG_ITS ---
APPROVED REPORT Exam: Resting ECG HR:67 bpm ECG Measurements Heart Rate 67 AXES NV 156 P 74 QRSd 78 QRS -50 QT 458 T 248 QTc 473 Conclusion SINUS RHYTHM LEFT AXIS DEVIATION [QRS AXIS < -30] ST DEVIATION AND MODERATE T-WAVE ABNORMALITY, CONSIDER INFERIOR ISCHEMIA [-0.1+ mV T-WAVE IN II/aVF] ABNORMAL ECG UNCONFIRMED REPORT Electronically signed by : Audie Carlton MD 12/07/2024 08:22:10
[2024-12-06 22:07] LABS: HDL Cholesterol 63 mg/dl (40-60); Triglycerides 288 mg/dl (30-150)
[2024-12-06 22:18] LABS: Cholesterol 364 mg/dl (140-200)
--- NOTE | 2024-12-06 22:19 | EXP.HP ---
History of Present Illness *Admission Date: 12/06/24 *Reason for visit:: Chest pain *History of present illness: Genny Menendez is a 69-year-old female with a medical history significant for medical nonadherence, hypertension, PAD s/p left AKA, MARY s/p left endarterectomy, current tobacco smoker (though has cut down since left AKA) presents from home after several day onset of worsening midsternal chest pain. Patient states chest pain has also been radiating down her left arm but sometimes labor get numb. She has not had chest pains like this prior. Denies shortness of breath, dizziness, fever/chills, abdominal pain. She states she used to follow with Dr. Avery in [place] before he retired, has not followed up since. He performed her 10+ stents in her left lower extremity, but ultimately needed a left AKA due to ischemia. She states she used to be a profuse smoker, but has cut down quite a bit and smokes 1 cigarette a day a few times a week. She states she does not take medications because she felt as though she can come off of them, including her antihypertensives. Upon arrival, blood pressure was 247/133 and patient was started on a heparin drip after discussing with Dr. Munoz. Other workup reveals initial troponin 0.43, BNP 2060, CTA chest without acute findings. On route, she was given aspirin and nitro which helped with chest pain. Given these findings, I discussed case with ED provider and I decided to admit patient for hypertensive emergency, NSTEMI. [facility] Disclaimer: The information contained in this section may have been updated after the patient was seen, as this information can be updated by other users. Medical History (Updated 12/06/24 @ 22:51 by Rigoberto Kat MD) History of peripheral arterial disease History of DVT (deep vein thrombosis) Surgical History (Updated 12/06/24 @ 22:51 by Rigoberto Kat MD) History of left below knee amputation Family History (Updated 12/06/24 @ 18:43 by Cande Piña, GEE) Other Family history of [place] (myocardial infarction) Family history of cancer Family history of coronary artery disease Family history of stroke Social History (Updated 12/06/24 @ 18:44 by Cande Piña RN) Smoking Status: Current every day smoker alcohol intake: never current occupational status: unemployed Travel in the last 8 weeks?: None Have you lived/traveled outside US in past 30 days?: No Contact w/someone who lives/traveled outside US past 30 days?: No Exposure to someone with infectious disease in past 14 days?: No Do you have a fever (greater than 100.4 F or 38 C)?: No Have you tested positive for COVID-19?: No Exposed to someone with COVID-19 in past 14 days?: No Do you have a sore throat?: No Do you have a cough?: No Do you have any weakness?: No Do you have any diarrhea?: No Are you experiencing any unusual bleeding?: No Do you have any muscle aches/pain?: No Do you have any abdominal pain?: No Are you experiencing loss of taste or smell?: No Other Medical History Have you received the Flu Vaccine for this season: No Have you received the Pneumonia Vaccine: No Meds Home Medications and Allergies Home Medications ?Medication ?Instructions ?Recorded ?Confirmed ?Type No Known Home Medications 12/06/24 12/06/24 History New Prescriptions to Start Prescriptions: Allergies Allergy/AdvReac Type Severity Reaction Status Date / Time No Known Allergies Allergy Verified 12/06/24 18:19 Exam Data for Last 24 hours Vital signs and Labs for Last 24 Hours: Temp Pulse Resp BP Pulse Ox O2 Del Method FiO2 98.1 F 64 18 156/91 H 96 Room Air 96 12/06/24 20:00 12/06/24 20:51 12/06/24 20:00 12/06/24 20:00 12/06/24 18:46 12/06/24 21:00 12/06/24 20:00 Laboratory Results - last 24 hr 12/06/24 16:00: WBC 8.9, RBC 5.43 H, Hgb 14.6, Hct 46.3, MCV 85.3, MCH 26.9 L, MCHC 31.5 L, RDW 15.2, Plt Count 328, MPV 10.7 H, Neut % (Auto) 65.8, Lymph % (Auto) 25.3, Nelson % (Auto) 5.7, Eos % (Auto) 1.4, Baso % (Auto) 1.6, Neut # (Auto) 5.8, Lymph # (Auto) 2.3, Nelson # (Auto) 0.5, Eos # (Auto) 0.1, Baso # (Auto) 0.1, Sodium 138, Potassium 4.2, Chloride 101, Carbon Dioxide 24, Anion Gap 17.2 H, BUN 17, Creatinine 1.00, Estimated Creat Clear 59, Estimated GFR 55 L, Est GFR ( Amer) 67, Glucose 142 H, Calcium 9.9, Total Bilirubin 0.6, AST 28, ALT 15, Alkaline Phosphatase 164 H, Troponin I 0.43 H, NT-Pro-B Natriuret Pep 2060 H, Total Protein 9.5 H, Albumin 5.0, Globulin 4.5 H, Albumin/Globulin Ratio 1.1 12/06/24 19:20: Troponin I 2.58 H, Triglycerides 288 H, Cholesterol 364 H, LDL Cholesterol Direct 226.46 H, VLDL Cholesterol 58 H, HDL Cholesterol 63 H, Cholesterol/HDL Ratio 5.8 H I & O for Last 24 hours: Intake & Output 12/03/24 12/04/24 12/05/24 12/06/24 23:59 23:59 23:59 23:59 Intake Total 144.886 / 144.886 Output Total 400 / 400 Balance -255.114 / -255.114 Weight 68.039 kg Constitutional Constitutional: no acute distress *Routine HEENT Exam Head: Present normocephalic Eye: Present EOMI and PERRL ENT: Present mucous membranes moist *Routine Neck Exam Neck: Present supple; Absent lymphadenopathy *Routine Respiratory Exam Respiratory: Present CTA bilaterally *Routine Cardiovascular Exam Cardiovascular: Present RRR *Routine Abdominal Exam Abdominal: Present soft and normoactive bowel sounds; Absent tenderness *Routine Rectal Exam Rectal:: deferred *Routine Genitalia Exam Genitalia:: deferred *Routine Extremities Exam Extremities: Absent cyanosis, clubbing or edema Comments: Left AKA with stump site. *Routine Skin Exam Skin: Present warm; Absent rash *Routine Neurological Exam Neurological: Present alert and oriented X3 Assessment and Plan *Assessment and plan (1) Hypertensive emergency: Status: Acute Category: Medical Code(s): I16.1 - Hypertensive emergency (2) PAD (peripheral artery disease): Status: Acute Category: Medical Code(s): I73.9 - Peripheral vascular disease, unspecified (3) Hx of AKA (above knee amputation): Status: Acute Category: Surgical Code(s): Z89.619 - Acquired absence of unspecified leg above knee (4) History of endarterectomy: Status: Acute Category: Surgical Code(s): Z98.890 - Other specified postprocedural states (5) Carotid artery stenosis: Status: Acute Category: Medical Code(s): I65.29 - Occlusion and stenosis of unspecified carotid artery (6) NSTEMI (non-ST elevated myocardial infarction): Status: Acute Category: Medical Code(s): I21.4 - Non-ST elevation (NSTEMI) myocardial infarction (7) Hyperlipidemia: Status: Acute Category: Medical Code(s): E78.5 - Hyperlipidemia, unspecified Plan Genny Menendez is a 69-year-old female with a medical history significant for medical nonadherence, hypertension, PAD s/p left AKA, MARY s/p left endarterectomy, current tobacco smoker (though has cut down since left AKA) presents from home after several day onset of worsening midsternal chest pain. Patient states chest pain has also been radiating down her left arm but sometimes labor get numb. She has not had chest pains like this prior. Denies shortness of breath, dizziness, fever/chills, abdominal pain. She states she used to follow with Dr. Avery in [place] before he retired, has not followed up since. He performed her 10+ stents in her left lower extremity, but ultimately needed a left AKA due to ischemia. She states she used to be a profuse smoker, but has cut down quite a bit and smokes 1 cigarette a day a few times a week. She states she does not take medications because she felt as though she can come off of them, including her antihypertensives. Upon arrival, blood pressure was 247/133 and patient was started on a nitroprusside drip after discussing with Dr. Munoz. Other workup reveals initial troponin 0.43, BNP 2060, CTA chest without acute findings. On route, she was given aspirin and nitro which helped with chest pain. Given these findings, I discussed case with ED provider and I decided to admit patient for hypertensive emergency, NSTEMI. #Hypertensive emergency #Medication nonadherence ? Presented with BP 247/[address] Munoz recommended nitroprusside drip in the ED. ? Has self discontinued antihypertensives, and all other medications, since her delineator Dr. Avery retired. ? Continue nitroprusside drip and wean as blood pressures improved, blood pressure improving. Currently 156/91, at goal for now. Will need slow reduction to avoid ischemia. ? Started carvedilol 12.5 mg twice daily in the setting of NSTEMI. ? Started amlodipine 10 mg nightly. ? Avoiding ACEi/ARB for now until bilateral renal artery stenosis is ruled out. ? Follow-up TSH, renal artery duplex. ? Follow-up ECHO. ? Cardiology consulted, pending further recommendations. ? Continuous cardiac telemetry. #Chest pain #NSTEMI type I #Hyperlipidemia #History of PAD with 10+ stents #History of left AKA #History of MARY s/p left endarterectomy ? Presented with worsening midsternal chest pain with radiation down left arm. No chest pain, shortness of breath on my evaluation, comfortable. ? Initial troponin 0.43, up trended to 2.58. EKG without acute ischemic changes. Follow serial troponins. ? Therapeutic Lovenox given prior to second troponin. ASA 325 mg given by EMS. ? Started carvedilol 12.5 mg twice daily, aspirin 81 mg, atorvastatin 80 mg. ? LDL 226, follow-up A1c, TSH, ECHO. ? Cardiology consulted, patient hesitant on [facility] but seemed ultimately agreeable. ? Elevated BNP 2015, but no signs of volume overload. #Current tobacco smoker ? Has cut down, continues to smoke. Nicotine patch daily. DNI DVT prophylaxis: Therapeutic Lovenox
[2024-12-06 22:39] LABS: Thyroid Stimulating Hormone 15.60 uIU/mL (0.465-4.68)
--- NOTE | 2024-12-06 22:45 | EXP.EVENT.NO ---
22:00 evaluated patient due to the troponin being elevated., Nurse called came over to see the patient patient is experiencing no chest pain no chest tightness twelve-lead EKG was ordered, the patient's lab also noted an increased TSH to 15 exam: Patient is alert oriented having no pain whatsoever Plan: After talking with the patient and looking at the EKG and comparing it with an earlier one. Do not feel there is any ST elevations. Will have the opponent will be repeated approximately 10 30-10 45. If the troponin continues to elevate we will recheck another twelve-lead to compare for any ST elevations. Noting I was talking to the patient she has had an amputation of the lower leg been through many stents and out catheterizations for that process. She is still a smoker large family history of cardiovascular disease and cancer. Patient stated there is no way she would ever have another catheterization done after all she has been through. We reviewed her reasons and she is steadfast at this time she would not be a cath even if she was having a heart attack
[2024-12-06 23:13] LABS: Troponin I 5.12 ng/ml (0.00-0.034)
--- NOTE | 2024-12-06 23:20 | ECG_ITS ---
APPROVED REPORT Exam: Resting ECG HR:69 bpm ECG Measurements Heart Rate 69 AXES IN 148 P 67 QRSd 76 QRS -62 QT 457 T 247 QTc 476 Conclusion SINUS RHYTHM LEFT AXIS DEVIATION [QRS AXIS < -30] PATTERN CONSISTENT WITH PULMONARY DISEASE ST DEVIATION AND MODERATE T-WAVE ABNORMALITY, CONSIDER LATERAL ISCHEMIA [-0.1+ mV T-WAVE IN I/aVL/V5/V6] ST DEVIATION AND MODERATE T-WAVE ABNORMALITY, CONSIDER INFERIOR ISCHEMIA [-0.1+ mV T-WAVE IN II/aVF] ABNORMAL ECG UNCONFIRMED REPORT Electronically signed by : Audie Carlton MD 12/07/2024 08:22:05
[2024-12-06 23:43] LABS: Free T4 (Free Thyroxine) 0.91 ng/dl (0.78-2.19)
--- NOTE | 2024-12-06 23:43 | PC.NURSE ---
Troponin critical at 5.12. EKG done. Hospitalist aware. Repeat troponin ordered for 0230.
[2024-12-07] VITALS (61 sets, daily range): BP systolic 101–191; BP diastolic 48–162; PULSE 51–90; RESP 12–22; TEMP 36.5–36.8; O2SAT 92–100; BMI 23.1
[2024-12-07 00:16] LABS: Hemoglobin A1C 5.5 % (4.0-6.0)
[2024-12-07 03:49] LABS: Troponin I 6.80 ng/ml (0.00-0.034)
--- NOTE | 2024-12-07 03:55 | ECG_ITS ---
APPROVED REPORT Exam: Resting ECG HR:67 bpm ECG Measurements Heart Rate 67 AXES NC 153 P 76 QRSd 77 QRS -37 QT 475 T 256 QTc 491 Conclusion SINUS RHYTHM LEFT AXIS DEVIATION [QRS AXIS < -30] ST DEVIATION AND MODERATE T-WAVE ABNORMALITY, CONSIDER LATERAL ISCHEMIA [-0.1+ mV T-WAVE IN I/aVL/V5/V6] ST DEVIATION AND MODERATE T-WAVE ABNORMALITY, CONSIDER INFERIOR ISCHEMIA [-0.1+ mV T-WAVE IN II/aVF] ABNORMAL ECG UNCONFIRMED REPORT Electronically signed by : Audie Carlton MD 12/07/2024 08:21:29
--- NOTE | 2024-12-07 04:02 | PC.NURSE ---
Troponin critical at 6.80. EKG done. Hospitalist aware. No new orders at this time.
[2024-12-07 05:51] LABS: Hematocrit 40.5 % (37.0-47.0); Immature Granulocytes % 0.5 %; Mean Corpuscular HGB Conc 31.4 g/dL (31.8-35.4); Mean Corpuscular Hemoglobin 26.7 pg (27.0-31.2); Mean Corpuscular Volume 85.3 fl (81-99); Nucleated Red Blood Cells % 0 %; Platelet Count 308 K/mm3 (142-424); Red Blood Count 4.75 M/mm3 (4.20-5.40); Red Cell Distribution Width-SD 47.4 fL; White Blood Count 8.2 K/mm3 (4.8-10.8)
[2024-12-07 05:55] LABS: Hemoglobin 12.5 g/dL (12.2-16.2)
[2024-12-07 06:00] LABS: Albumin Level 4.2 g/dl (3.5-5.0); Chloride 106 mmol/L (98-107); Sodium 138 mmol/L (136-145)
--- NOTE | 2024-12-07 06:00 | CA_ITS ---
FINAL REPORT CLINICAL HISTORY: ASCVD, Occlussive PAD withsubsequent leg amputation CEA left, HTN emergency COMPARISON: None FINDINGS: Aorta velocity: 46 cm/sec Right kidney: 9.1 cm. No evidence of hydronephrosis or mass. Right intrarenal RI: 0.67-0.74 Right renal artery velocity: 476 cm/sec. Right RAR (Renal artery-Aortic Ratio): 10 Left Kidney: 9.1 cm. No evidence of hydronephrosis or mass. Left intrarenal RI: 0.62-0.72 Left renal artery velocity: 119 cm/sec. Left RAR (Renal Artery-Aortic Ratio): 2.64 IMPRESSION: Greater than 80% luminal diameter stenosis of the right renal artery. Less than 60% luminal diameter stenosis of the left renal artery. CT angiogram, catheter angiography or postcontrast MR angiogram would be more sensitive for evaluation of possible renal artery stenosis. Reviewed, Interpreted and Dictated by Yannick Wright MD Transcribed by Nina Jolley Authenticated and [facility]
[2024-12-07 06:01] LABS: Potassium 4.1 mmoL/L (3.5-5.1)
[2024-12-07 06:03] LABS: Alanine Aminotransferase 13 U/L (12-78); Albumin/Globulin Ratio 1.4 (1.1-1.8); Alkaline Phosphatase 128 U/L (38-126); Anion Gap 12.1 mEq/L (5-15); Aspartate Amino Transferase 45 U/L (14-36); Bilirubin,Total 0.5 mg/dl (0.2-1.3); Blood Urea Nitrogen 15 mg/dl (7-17); Carbon Dioxide 24 mmol/L (22.0-30.0); Creatinine Clearance Estimated 59 mL/min (50-200); Creatinine,Serum 1.00 mg/dl (0.52-1.04); Estimated Glomerular Filt Rate 55 ml/min (>60); GFR (African American) 67 ML/MIN (>60); Globulin 3.0 g/dL (1.3-3.2); Total Protein,Serum 7.2 g/dl (6.3-8.2)
[2024-12-07 06:04] LABS: Calcium 9.5 mg/dl (8.4-10.2); Glucose 98 mg/dl (74-100); Magnesium 2.4 mg/dl (1.6-2.3)
--- NOTE | 2024-12-07 06:42 | PC.NURSE ---
Nipride titrated to SBP <160. Turned off at 0047. Troponin results were 2.58, 5.12, and 6.8. EKGs were done with each critical result and reviewed by hospitalist. Patient denies chest pain. Patient has been NPO since 0000.
[2024-12-07] MEDS: CARVEDILOL 12.5MG TABLET 12.5 MG PO ×2 (08:31→20:01)
[2024-12-07] MEDS: ASPIRIN EC 81MG TABLET 81 MG PO (08:31)
[2024-12-07 09:17] LABS: Thyroid Stimulating Hormone 11.90 uIU/mL (0.465-4.68)
--- NOTE | 2024-12-07 09:40 | PC.NURSE ---
Primary RN notified of patients blood pressure elevation this AM during bedside echo. Patients blood pressure is now 135/66 (89) at 0935. No new orders. Continuation of care plan.
--- NOTE | 2024-12-07 11:46 | PC.NURSE ---
Per Sangita Suarez, Patient may have one cup of coffee and a small snack. Primary RN gave patient one glass of coffee. Patient refused snack at this time. Continuation of care plan.
--- NOTE | 2024-12-07 12:36 | IR_ITS ---
APPROVED REPORT Patient Location: [facility]patient [facility] Installer: Mack Mejia, RT (R) PROCEDURES Left heart catheterization Left ventriculogram Selective coronary angiogram Bilateral selective renal angiogram Bare-metal stent deployment to the right renal artery INDICATION Acute non-ST elevation myocardial infarction, Malignant hypertension, Renovascular hypertension, Renal artery stenosis Informed consent was obtained prior to the procedure. COMPLICATIONS none Estimated Blood Loss: less than 10ml TECHNIQUE Prior to the groin procedure 1% lidocaine was used to size the right anterior aspect of the wrist on the right radial wrist access via the Salinger technique. Due to the small size of the radial and brachial artery I was unable to advance the sheath adequately through the vessel therefore it was removed and converted into a femoral artery case. One percent lidocaine used to anesthetize the right groin. The right femoral artery was accessed via the Seldinger technique and a 4 Beninese sheath was placed in the right femoral artery. A JL 4, JR4 catheter were used to perform left heart catheterization, left ventriculogram selective coronary angiography. The JR4 catheter was used to perform bilateral selective renal angiography. At the end the diagnostic angiogram therapeutic Was administered giving a therapeutic ACT and the 4 Beninese sheath was exchanged for a 6 Beninese sheath. A short WOODY catheter was used to intubate the right renal artery and a Choice PT extra-support wire was placed distally. A 6 mm x 15 mm Herculink bare-metal stent was deployed at 15 bell reducing the severe stenosis to 0%. Excellent angiograph results were obtained at the end the procedure the apparatus was removed the patient was transferred to the postop Olding area in stable condition for sheath removal ANGIOGRAPHIC RESULTS The left main artery Normal The left anterior descending artery Has proximal 20 and 40% stenosis followed by an 80% mid vessel to distal stenosis along a small caliber LAD and a highly tortuous area The circumflex artery Is a large dominant vessel and has a heavily calcified 40 to 50% calcified stenosis prior to the ramus intermedius. The ramus intermedius is small to medium followed by an additional proximal complex 30 to 40% stenosis. There are 2 small obtuse marginal arteries followed by a larger bifurcating distal obtuse marginal artery which has proximal 40 to 50% long tubular stenoses which involved proximal to and distal to the bifurcation of each limb. The terminal obtuse marginal artery is tortuous and has a mid vessel 50 to 60% calcified stenosis along a tortuous bend with a small to medium size amount of distal obtuse marginal artery The right coronary artery Small nondominant with proximal calcified 50% in the additional 80 to 90% mid vessel stenosis and a vessel smaller than 2 mm in diameter The ROMANO ventriculogram reveals Normal 60% The left ventricular end-diastolic pressure 10 mmHg Right renal artery has a dual arterial supply. The superior branch which supplies 80% of the kidney has a proximal 80% calcified stenosis while the inferior branch is normal Left renal artery singular normal IMPRESSION Coronary artery disease as described above which is best managed medically Normal ejection fraction Normal LVEDP Severe right renal artery stenosis Successful stenting of the right renal artery severe disease reduced to 0% with 1 bare-metal balloon expandable stent PLAN 1. Aspirin and Plavix for 1 year 2. Control of hypertension 3. LDL less than 55 to be achieved with high intensity statin 4. Avoidance of tobacco products 5. Cardiac rehabilitation Electronically signed by : Todd Munoz MD 12/07/2024 15:12:39
--- NOTE | 2024-12-07 13:06 | P.CONCA_ITS ---
History of Present Illness History of Present Illness Consult date: 12/07/24 Requesting physician: Kendall Ibrahim Consult reason: chest pain Chief complaint: chest pain History of present illness: This is a 69-year-old white female who presented to the emergency department complaints of chest pain. She does have a past medical history of PAD status post left AKA, MAYR status post left carotid endarterectomy, tobacco user, hypertension and medical noncompliance. The patient states that she started having chest pain on Friday. She states that this is a pressure sensation in the center of her chest that radiates under her right breast. She states that it goes down her left arm into her left shoulder blade. She states that on Friday the chest pain was not that bad and occurring intermittently off and on lasting a few seconds. She states then yesterday the pain reoccurred and it was severe 10 out of 10 pain. She states that it was associated with nausea and was unbearable. She states that it was only lasting for seconds but occurring off and on repeatedly. She called EMS and came to the emergency department. Upon arrival to the hospital the patient's blood pressure was 247/133. She was started on a nitroprusside drip due to her hypertension. This morning she states that she is feeling better and has only had the chest pain intermittently but still present. She denies any shortness of breath or edema. She denies any fever, chills, nausea, vomiting or diarrhea. She is status post left AKA due to PAD procedure approximately 3 years ago. [facility] Disclaimer: The information contained in this section may have been updated after the patient was seen, as this information can be updated by other users. Medical History (Updated 12/07/24 @ 13:13 by Sangita Suarez APRN) Renal artery stenosis Angina pectoris Tobacco user Hyperlipidemia NSTEMI (non-ST elevated myocardial infarction) Carotid artery stenosis PAD (peripheral artery disease) Hypertensive emergency Hypertension History of peripheral arterial disease History of DVT (deep vein thrombosis) Surgical History (Updated 12/07/24 @ 13:12 by Sangita Suarez APRN) History of endarterectomy Hx of AKA (above knee amputation) Family History (Updated 12/06/24 @ 18:43 by Cande Piña RN) Other Family history of [place] (myocardial infarction) Family history of cancer Family history of coronary artery disease Family history of stroke Social History (Updated 12/06/24 @ 18:44 by Cande Piña RN) Smoking Status: Current every day smoker alcohol intake: never current occupational status: unemployed Travel in the last 8 weeks?: None Have you lived/traveled outside US in past 30 days?: No Contact w/someone who lives/traveled outside US past 30 days?: No Exposure to someone with infectious disease in past 14 days?: No Do you have a fever (greater than 100.4 F or 38 C)?: No Have you tested positive for COVID-19?: No Exposed to someone with COVID-19 in past 14 days?: No Do you have a sore throat?: No Do you have a cough?: No Do you have any weakness?: No Do you have any diarrhea?: No Are you experiencing any unusual bleeding?: No Do you have any muscle aches/pain?: No Do you have any abdominal pain?: No Are you experiencing loss of taste or smell?: No Review of Systems Review of Systems Review of systems:: pertinent systems reviewed and negative unless documented below Constitutional Constitutional: Reports system reviewed and no additional complaints, except as documented Eyes Eyes: Reports system reviewed and no additional complaints, except as documented ENT Ears, Nose, Mouth, and Throat: Reports system reviewed and no additional complaints, except as documented *Cardiovascular Cardiovascular: Reports system reviewed and no additional complaints, except as documented, Reports chest pain, Reports chest pain at rest, Reports chest pain with activity and Reports radiating jaw, neck or arm pain *Respiratory Respiratory: Reports system reviewed and no additional complaints, except as documented *Gastrointestinal Gastrointestinal: Reports system reviewed and no additional complaints, except as documented and Reports nausea *Genitourinary Genitourinary: Reports system reviewed and no additional complaints, except as documented *Musculoskeletal Musculoskeletal: Reports system reviewed and no additional complaints, except as documented Integumentary/Breasts Skin/Breast: Reports system reviewed and no additional complaints, except as documented *Neurologic Neurologic: Reports system reviewed and no additional complaints, except as documented Psychiatric Psychiatric: Reports system reviewed and no additional complaints, except as documented Endocrine Endocrine: Reports system reviewed and no additional complaints, except as documented Hematologic/Lymphatic Hematologic/Lymphatic: Reports system reviewed and no additional complaints, except as documented Allergic/Immunologic Allergic/Immunologic: Reports system reviewed and no additional complaints, except as documented Exam Data for Last 24 hours Vital signs and Labs for Last 24 Hours: Temp Pulse Resp BP Pulse Ox O2 Del Method FiO2 97.9 F 71 15 147/129 H 97 Room Air 96 12/07/24 08:43 12/07/24 12:00 12/07/24 11:00 12/07/24 11:00 12/07/24 12:00 12/07/24 12:00 12/06/24 20:00 Laboratory Results - last 24 hr 12/06/24 16:00: WBC 8.9, RBC 5.43 H, Hgb 14.6, Hct 46.3, MCV 85.3, MCH 26.9 L, MCHC 31.5 L, RDW 15.2, Plt Count 328, MPV 10.7 H, Neut % (Auto) 65.8, Lymph % (Auto) 25.3, [place] % (Auto) 5.7, Eos % (Auto) 1.4, Baso % (Auto) 1.6, Neut # (Auto) 5.8, Lymph # (Auto) 2.3, [place] # (Auto) 0.5, Eos # (Auto) 0.1, Baso # (Auto) 0.1, Sodium 138, Potassium 4.2, Chloride 101, Carbon Dioxide 24, Anion Gap 17.2 H, BUN 17, Creatinine 1.00, Estimated Creat Clear 59, Estimated GFR 55 L, Est GFR ( Amer) 67, Glucose 142 H, Hemoglobin A1c 5.5, Calcium 9.9, Total Bilirubin 0.6, AST 28, ALT 15, Alkaline Phosphatase 164 H, Troponin I 0.43 H, NT-Pro-B Natriuret Pep 2060 H, Total Protein 9.5 H, Albumin 5.0, Globulin 4.5 H, Albumin/Globulin Ratio 1.1, Free T4 0.91 12/06/24 19:20: Troponin I 2.58 H, Triglycerides 288 H, Cholesterol 364 H, LDL Cholesterol Direct 226.46 H, VLDL Cholesterol 58 H, HDL Cholesterol 63 H, Cholesterol/HDL Ratio 5.8 H, TSH 15.60 H 12/06/24 22:32: Troponin I 5.12 H 12/07/24 02:28: Troponin I 6.80 H 12/07/24 05:05: WBC 8.2, RBC 4.75, Hgb 12.5 D, Hct 40.5, MCV 85.3, MCH 26.7 L, MCHC 31.4 L, RDW 15.3, Plt Count 308, MPV 11.7 H, Neut % (Auto) 57.2, Lymph % (Auto) 31.4, [place] % (Auto) 7.2, Eos % (Auto) 2.0, Baso % (Auto) 1.7, Neut # (Auto) 4.7, Lymph # (Auto) 2.6, [place] # (Auto) 0.6, Eos # (Auto) 0.2, Baso # (Auto) 0.1, Sodium 138, Potassium 4.1, Chloride 106, Carbon Dioxide 24, Anion Gap 12.1, BUN 15, Creatinine 1.00, Estimated Creat Clear 59, Estimated GFR 55 L, Est GFR ( Amer) 67, Glucose 98 D, Calcium 9.5, Magnesium 2.4 H, Total Bilirubin 0.5, AST 45 H D, ALT 13, Alkaline Phosphatase 128 H, Total Protein 7.2, Albumin 4.2 D, Globulin 3.0, Albumin/Globulin Ratio 1.4, TSH 11.90 H I & O for Last 24 hours: Intake & Output 12/04/24 12/05/24 12/06/24 12/07/24 23:59 23:59 23:59 23:59 Intake Total 153.627 / 153.627 4.116 / 4.116 Output Total 400 / 1000 1000 / 1000 Balance -246.373 / -846.373 -995.884 / -995.884 Weight 150 lb 143 lb 1.28 oz Constitutional Constitutional: no acute distress and average body habitus *Routine HEENT Exam Head: Present normocephalic and atraumatic ENT: Present mucous membranes moist *Routine Neck Exam Neck: Present supple, full ROM and normal carotid upstroke; Absent JVD, carotid bruit or lymphadenopathy *Routine Respiratory Exam Respiratory: Present CTA bilaterally, normal respiratory effort, able to speak in complete sentences and symmetric chest movement *Routine Cardiovascular Exam Cardiovascular: Present RRR, Normal S1 and Normal S2; Absent murmur or gallop *Routine Abdominal Exam Abdominal: Present soft and normoactive bowel sounds; Absent tenderness, distended or organomegaly *Routine Extremities Exam Extremities: Present full ROM, pulses intact, normal capillary refill and amputation (Left AKA); Absent cyanosis, clubbing or edema *Routine Skin Exam Skin: Present intact and warm; Absent erythema *Routine Neurological Exam Neurological: Present alert, oriented X3 and CN II-XII intact; Absent sensory deficit or motor deficit Routine Psychiatric Exam Psychiatric: Present normal affect Meds Home Medications and Allergies Home Medications ?Medication ?Instructions ?Recorded ?Confirmed ?Type No Known Home Medications 12/06/2411/19 History New Prescriptions to Start Prescriptions: Allergies Allergy/AdvReac Type Severity Reaction Status Date / Time No Known Allergies Allergy Verified 12/06/24 18:19 Assessment and Plan *Assessment and plan (1) NSTEMI (non-ST elevated myocardial infarction): Status: Acute Category: Medical Code(s): I21.4 - Non-ST elevation (NSTEMI) myocardial infarction (2) Hypertensive emergency: Status: Acute Category: Medical Code(s): I16.1 - Hypertensive emergency (3) PAD (peripheral artery disease): Status: Acute Category: Medical Code(s): I73.9 - Peripheral vascular disease, unspecified (4) Hx of AKA (above knee amputation): Status: Acute Qualifiers: Laterality: left Qualified Code(s): Z89.612 - Acquired absence of left leg above knee Category: Surgical Code(s): Z89.619 - Acquired absence of unspecified leg above knee (5) Carotid artery stenosis: Status: Acute Qualifiers: Laterality: bilateral Qualified Code(s): I65.23 - Occlusion and stenosis of bilateral carotid arteries Category: Medical Code(s): I65.29 - Occlusion and stenosis of unspecified carotid artery (6) History of endarterectomy: Status: Acute Category: Surgical Code(s): Z98.890 - Other specified postprocedural states (7) Hyperlipidemia: Status: Acute Qualifiers: Hyperlipidemia type: mixed hyperlipidemia Qualified Code(s): E78.2 - Mixed hyperlipidemia Category: Medical Code(s): E78.5 - Hyperlipidemia, unspecified (8) Hypertension: Status: Acute Qualifiers: Hypertension type: primary hypertension Qualified Code(s): I10 - Essential (primary) hypertension Category: Medical Code(s): I10 - Essential (primary) hypertension (9) Tobacco user: Status: Acute Category: Social Hx Code(s): Z72.0 - Tobacco use (10) Angina pectoris: Status: Acute Category: Medical Code(s): I20.9 - Angina pectoris, unspecified (11) Renal artery stenosis: Status: Acute Category: Medical Code(s): I70.1 - Atherosclerosis of renal artery Plan Plan: 1. the patient was admitted to the hospital due to hypertension emergency and chest pain. She is found to have an elevated troponin consistent with a non- STEMI. Will plan to undergo left cardiac catheterization today to evaluate for coronary artery disease due to her non-STEMI and angina. Continue aspirin. 2. The patient has has been educated on the risks and benefits of proceeding with left cardiac catheterization. The patient verbalized understanding and is agreeable for proceeding with the procedure. 3. The patient also had a malignantly elevated blood pressure on arrival. Her blood pressure was 247/133. She was started on a nitroprusside drip. The patient did have a renal duplex which shows greater than 80% stenosis of the right renal artery and less than 60% stenosis on the left. At the time of her left cardiac catheterization we will also proceed with a renal angiogram due to her renal artery stenosis. 4. The patient has been educated on the risks and benefits of proceeding with renal angiogram. The patient verbalizes understanding and is agreeable in proceeding with the procedure. 5. The patient will be n.p.o. in preparation for left cardiac catheterization and renal angiogram. 6. Her blood pressure has improved today. Continue her carvedilol and Norvasc. 7. Her LDL goal is less than 55. Her LDL is 226. She has been started on a statin. 8. The patient does have a history of carotid artery stenosis, status post left carotid endarterectomy. 9. The patient does have a history of PAD and is status post left AKA due to a complication from previous angiogram of her left lower extremity. 10. We will get an echocardiogram to evaluate her LV function due to her non- STEMI. 11. Her TSH significantly elevated at 11.9. Start Synthroid 50 mcg daily. 12. Further recommendations will be made pending the patient's response to treatment the results of her left cardiac catheterization and echocardiogram today. Thank you for the opportunity to help participate in the care of this patient. All recommendations and orders are per Dr. Loyola.
--- NOTE | 2024-12-07 13:37 | PC.NURSE ---
Patient off unit to r and d lab technician at this time. Continuation of care plan.
[2024-12-07] MEDS: NITROGLYCERIN 800MCG/8ML SYR (CATH LAB) 800 MCG IA (13:43)
[2024-12-07] MEDS: 0.9 % SODIUM CHLORIDE 500 ML 25 ML IV (13:44)
[2024-12-07] MEDS: HEPARIN 1,000 UNITS/500ML NS (CATH LAB) 3000 UNIT IV (13:44)
[2024-12-07] MEDS: LIDOCAINE 1% 10ML MDV 10 ML IJ (13:44)
[2024-12-07] MEDS: VERAPAMIL 2.5MG/ML 2ML VIAL 2.5 MG IV (13:44)
[2024-12-07] MEDS: HEPARIN 1,000 UNITS/ML 10ML VIAL (CATH LAB) 5000 UNIT IV ×2 (13:44→14:32)
[2024-12-07] MEDS: FENTANYL 100MCG/2ML VIAL 50 MCG IV (14:40)
[2024-12-07] MEDS: MIDAZOLAM HCL 1MG/ML 5ML VIAL 1 MG IV (14:40)
--- OUTSIDE RECORDS SUMMARY | 2024-12-07 14:56 | XMS_ITS | Clinical Summary ---
Author Organization [facility] Address [address] [place] [address] Phone Care Team Providers Care Tinsmith Apprentice Name Role Phone Nonstaff, Referring Primary Care [...] Superficial femoral artery occlusion 02/19/2022 Atherosclerosis of [place] of extremity with rest pain 02/19/2022 Urinary retention 02/19/2022 Vascular disease 02/18/2022 Hyperlipidemia 12/06/2019 PVD (peripheral vascular disease) 12/06/2019 Overview (02/20/2022): Required interventional radiology guided tPA lysis. Clinically improved after lysis and anticoagulation. Tobacco abuse 12/06/2019 Left carotid artery stenosis 12/02/2019 Overview (12/02/2019): Added automatically from request for surgery [id number] Immunizations Immunization Administration Dates Next Due Influenza [...] IR REVAS FEM POP ART UNILAT W BENDING ROLL HAND 02/19/2022 IR REVAS FEM POP ART UNILAT W BENDING ROLL HAND 02/19/2022 Vick Torres MD EDG IR IR TRANS ART OR FILEMON FOR THRO MB SUBSQ DAY FU CATH CONT INJ+CLOS 02/19/2022 IR TRANS ART OR VENOUS FOR THROMB SUBSQ DAY FU CATH CONT INJECT AND CLOSURE 02/19/2022 Vick Torres MD EDG IR IR REVAS FEM POP ART UNILAT W BENDING ROLL HAND 02/19/2022 IR REVAS FEM POP ART UNILAT W BENDING ROLL HAND 02/19/2022 Vick Torres MD [facility]G IR FEMORAL [...] EDT Impressions 11/16/2021 3:41 PM EDT Negative ([id number]) ~ RECOMMENDATION: Routine screening mammogram in 1 [...] the next mammogram, in accordance with the [employer] and the Society of Breast Imaging recommendations. Narrative 11/16/2021 3:41 PM EDT Procedure:MM MAMMO DIGITAL EMERALD SCREEN BILAT ~ Reason for exam: screening, asymptomatic. Z12.31-Encounter for screening mammogram for malignant neoplasm of [id number] ~ MM MAMMO DIGITAL EMERALD SCREEN BILAT Bilateral CC and MLO view(s) were taken. There are scattered fibroglandular densities. Prior study comparison: November 30, 2018. No significant interval change. ~ Procedure Note Tammy Mckee MD - 11/16/2021 Procedure:MM MAMMO DIGITAL EMERALD SCREEN BILAT ~ Reason for exam: screening, asymptomatic. Z12.31-Encounter for screening mammogram for malignant neoplasm of [id number] ~ MM MAMMO DIGITAL EMERALD SCREEN BILAT Bilateral CC and MLO view(s) were taken. There are scattered fibroglandular densities. Prior study comparison: November 30, 2018. No significant interval change. ~ IMPRESSION: Negative ([id number]) ~ RECOMMENDATION: Routine screening mammogram in 1 [...] the next mammogram, in accordance with the [employer] and the Society of Breast Imaging recommendations. Janett Fult[address] [facility] [place] MAMMOGRAPHY ORDERABL ES Final Result from Last 3 Months or Most Recently Relevant to Health Maintenance Insurance [id number] [place] [address] Advance Directives For more information, please contact: [phone] * Full Code (Latest Code Status on File) Date Activated Date Inactivated Comments 02/28/2022 9:04 PM 03/06/2022 10:00 PM * Full Code Date Activated Date Inactivated Comments 02/18/2022 12:17 PM 02/20/2022 8:30 PM * Full Code Date Activated Date Inactivated Comments 12/06/2019 7:53 PM 12/07/2019 1:53 PM Care Teams Tinsmith Apprentice Relationship Specialty Start Date End Date Nonstaff, Referring PCP - General 03/01/22
[2024-12-07] MEDS: IOPAMIDOL-370 (76%);100ML BOTTLE 110 ML IV (14:59)
[2024-12-07 15:03] LABS: CATHL Activated Clotting Time 265 SEC (74-125)
[2024-12-07 15:03] LABS: CATHL Activated Clotting Time 229 SEC (74-125)
[2024-12-07] MEDS: PROTAMINE SULFATE 50MG/5ML VIAL (CATH LAB) 50 MG IV (15:09)
[2024-12-07 15:54] LABS: CATHL Activated Clotting Time 165 SEC (74-125)
[2024-12-07 15:56] LABS: CATHL Activated Clotting Time 258 SEC (74-125)
--- NOTE | 2024-12-07 16:20 | PC.NURSE ---
Patient arrived back to ICU at this time. Continuation of care plan.
--- NOTE | 2024-12-07 16:49 | P.PN_ITS ---
Subjective *Date: 12/07/24 *Time: 16:49 Interval history: Patient denies chest pain today. Blood pressure doing better on morning rounds. On room air. No nausea or vomiting. Hesitant to proceed with heart cath. Cardiology to discuss further. Medical Exam Vital signs and Labs for Last 24 Hours: Vital Signs Temp Pulse Pulse Resp BP BP Pulse Ox 12/07/24 16:35 59 L 16 155/75 H 96 12/07/24 16:35 96 12/07/24 16:30 59 L 16 164/75 H 96 12/07/24 16:25 60 16 177/82 H 97 12/07/24 16:20 97.7 F 12/07/24 16:20 90 16 182/90 H 99 12/07/24 16:09 64 20 170/89 H 96 12/07/24 16:06 152/80 H 12/07/24 16:03 173/90 H 12/07/24 16:00 150/85 H 12/07/24 15:57 174/85 H 12/07/24 15:54 163/85 H 12/07/24 15:51 163/90 H 12/07/24 15:48 160/85 H 12/07/24 15:45 166/87 H 12/07/24 15:42 150/80 H 12/07/24 15:39 141/62 H 12/07/24 15:36 140/73 12/07/24 15:33 137/76 12/07/24 15:30 53 L 20 135/78 95 12/07/24 15:27 51 L 20 148/70 H 95 12/07/24 15:24 57 L 20 156/77 H 95 12/07/24 15:21 55 L 20 154/81 H 94 L 12/07/24 15:18 58 L 20 153/74 H 93 L 12/07/24 15:15 63 20 139/76 94 L 12/07/24 15:12 55 L 20 150/80 H 93 L 12/07/24 15:09 56 L 20 138/73 93 L 12/07/24 15:06 59 L 20 126/68 93 L 12/07/24 15:03 59 L 20 124/69 93 L 12/07/24 15:00 59 L 20 116/67 93 L 12/07/24 14:57 61 20 124/65 92 L 08/19/25 14:54 60 20 101/56 L 92 L 12/07/24 14:51 56 L 20 103/61 L 92 L 12/07/24 14:48 70 20 107/56 L 94 L 12/07/24 14:45 60 70 20 131/66 98 12/07/24 14:44 70 20 131/66 93 L 12/07/24 13:31 191/162 H 12/07/24 13:29 73 16 95 12/07/24 13:27 61 12 97 12/07/24 13:27 148/77 H 12/07/24 13:25 166/78 H 12/07/24 13:25 63 18 96 12/07/24 13:00 12/07/24 13:00 68 22 181/93 H 97 12/07/24 12:00 67 12 162/80 H 95 12/07/24 12:00 71 12/07/24 12:00 97 12/07/24 11:00 71 15 147/129 H 97 12/07/24 11:00 12/07/24 10:00 61 15 147/69 H 97 12/07/24 09:01 60 16 127/62 96 12/07/24 09:00 12/07/24 08:47 96 12/07/24 08:43 97.9 F 12/07/24 08:00 98.1 F 67 12 163/79 H 96 12/07/24 08:00 68 12/07/24 07:00 12/07/24 05:00 12/07/24 04:00 64 12/07/24 04:00 98.3 F 57 L 16 134/67 12/07/24 04:00 95 12/07/24 03:00 12/07/24 01:00 12/07/24 00:00 75 12/07/24 00:00 97.8 F 72 16 135/79 96 12/07/24 00:00 96 12/06/24 23:00 12/06/24 21:00 12/06/24 20:51 64 12/06/24 20:00 98.1 F 73 18 156/91 H 12/06/24 20:00 12/06/24 18:53 12/06/24 18:46 96 12/06/24 17:54 108 H 12/06/24 17:54 98.0 F 110 H 20 175/110 H O2 Del Method FiO2 12/07/24 16:35 Room Air 12/07/24 16:35 Room Air 12/07/24 16:30 Room Air 12/07/24 16:25 Room Air 12/07/24 16:20 12/07/24 16:20 Room Air 12/07/24 16:09 12/07/24 16:06 12/07/24 16:03 12/07/24 16:00 12/07/24 15:57 12/07/24 15:54 12/07/24 15:51 12/07/24 15:48 12/07/24 15:45 12/07/24 15:42 12/07/24 15:39 12/07/24 15:36 12/07/24 15:33 12/07/24 15:30 Room Air 12/07/24 15:27 Room Air 12/07/24 15:24 Room Air 12/07/24 15:21 Room Air 12/07/24 15:18 Room Air 12/07/24 15:15 Room Air 12/07/24 15:12 Room Air 12/07/24 15:09 Room Air 12/07/24 15:06 Room Air 12/07/24 15:03 Room Air 12/07/24 15:00 Room Air 12/07/24 14:57 Room Air 12/07/24 14:54 Room Air 12/07/24 14:51 Room Air 12/07/24 14:48 Room Air 12/07/24 14:45 Room Air 12/07/24 14:44 Room Air 12/07/24 13:31 12/07/24 13:29 12/07/24 13:27 12/07/24 13:27 12/07/24 13:25 12/07/24 13:25 12/07/24 13:00 Room Air 12/07/24 13:00 12/07/24 12:00 12/07/24 12:00 12/07/24 12:00 Room Air 12/07/24 11:00 12/07/24 11:00 Room Air 12/07/24 10:00 12/07/24 09:01 12/07/24 09:00 Room Air 12/07/24 08:47 Room Air 12/07/24 08:43 12/07/24 08:00 12/07/24 08:00 12/07/24 07:00 Room Air 12/07/24 05:00 Room Air 12/07/24 04:00 12/07/24 04:00 Room Air 12/07/24 04:00 Room Air 12/07/24 03:00 Room Air 12/07/24 01:00 Room Air 12/07/24 00:00 12/07/24 00:00 Room Air 12/07/24 00:00 Room Air 12/06/24 23:00 Room Air 12/06/24 21:00 Room Air 12/06/24 20:51 12/06/24 20:00 Room Air 96 12/06/24 20:00 Room Air 12/06/24 18:53 Room Air 12/06/24 18:46 Room Air 12/06/24 17:54 12/06/24 17:54 Room Air Intake and Output 12/07/24 12/07/24 12/07/24 07:59 15:59 23:59 Intake Total 4.116 / 504.116 500 / 504.116 Output Total 1000 / 1311 311 / 1311 Balance -995.884 / -806.884 189 / -806.884 Intake: Intake, Total IV Amount 4.116 / 504.116 500 / 504.116 0.9 % Sodium Chloride 500 ml @ 500 / 500 25 mls/hr IV .Q25H ELAINE Rx#: [id number] Nitroprusside Sodium 50 mg In 4.116 / 4.116 Dextrose 5 % in Water 250 ml @ 0.3 MCG/KG/MIN 6.173 mls/hr IV .Q24H ELAINE Rx#:[id number] Output: Output, Urine Amount 1000 / 1311 311 / 1311 Other: Number of Unmeasured Voids 1 Weight 64.9 kg Patient Weight 12/07/24 23:59 Weight 64.9 kg Laboratory Results - last 24 hr 12/06/24 16:00: Hemoglobin A1c 5.5, NT-Pro-B Natriuret Pep 2060 H, Free T4 0.91 12/06/24 19:20: Troponin I 2.58 H, Triglycerides 288 H, Cholesterol 364 H, LDL Cholesterol Direct 226.46 H, VLDL Cholesterol 58 H, HDL Cholesterol 63 H, Cholesterol/HDL Ratio 5.8 H, TSH 15.60 H 12/06/24 22:32: Troponin I 5.12 H 12/07/24 02:28: Troponin I 6.80 H 12/07/24 05:05: WBC 8.2, RBC 4.75, Hgb 12.5 D, Hct 40.5, MCV 85.3, MCH 26.7 L, MCHC 31.4 L, RDW 15.3, Plt Count 308, MPV 11.7 H, Neut % (Auto) 57.2, Lymph % (Auto) 31.4, Frederick % (Auto) 7.2, Eos % (Auto) 2.0, Baso % (Auto) 1.7, Neut # (Auto) 4.7, Lymph # (Auto) 2.6, Frederick # (Auto) 0.6, Eos # (Auto) 0.2, Baso # (Auto) 0.1, Sodium 138, Potassium 4.1, Chloride 106, Carbon Dioxide 24, Anion Gap 12.1, BUN 15, Creatinine 1.00, Estimated Creat Clear 59, Estimated GFR 55 L, Est GFR ( Amer) 67, Glucose 98 D, Calcium 9.5, Magnesium 2.4 H, Total Bilirubin 0.5, AST 45 H D, ALT 13, Alkaline Phosphatase 128 H, Total Protein 7.2, Albumin 4.2 D, Globulin 3.0, Albumin/Globulin Ratio 1.4, TSH 11.90 H 12/07/24 14:06: Activated Clotting Time 229 H* 12/07/24 14:18: Activated Clotting Time 265 H* 12/07/24 14:42: Activated Clotting Time 258 H* 12/07/24 15:21: Activated Clotting Time 165 H* D I & O for Labs for Last 24 Hours: Intake & Output 12/04/24 12/05/24 12/06/24 12/07/24 23:59 23:59 23:59 23:59 Intake Total 153.627 / 153.627 504.116 / 504.116 Output Total 400 / 1000 1311 / 1311 Balance -246.373 / -846.373 -806.884 / -806.884 Weight 68.039 kg 64.9 kg Constitutional: Present no acute distress, average body habitus, chronically ill appearing and cooperative Head: Present atraumatic and normocephalic ENT: Present normal exam Respiratory: Present normal respiratory effort; Absent rhonchi, wheezes or crackles Cardiac: Present Reg Rate and Rhythm GI: Present soft and normal bowel sounds; Absent distention or tenderness Extremities: Present normal inspection and full ROM; Absent edema Comment:: Absent left lower extremity above the knee Skin: Present intact; Absent erythema Neuro: Present Grossly Intact, alert, awake, oriented x 3 and moves all extremities Assessment and Plan *Assessment and plan (1) Hypertensive emergency: Status: Acute Category: Medical Code(s): I16.1 - Hypertensive emergency (2) PAD (peripheral artery disease): Status: Acute Category: Medical Code(s): I73.9 - Peripheral vascular disease, unspecified (3) Hx of AKA (above knee amputation): Status: Acute Qualifiers: Laterality: left Qualified Code(s): Z89.612 - Acquired absence of left leg above knee Category: Surgical Code(s): Z89.619 - Acquired absence of unspecified leg above knee (4) History of endarterectomy: Status: Acute Category: Surgical Code(s): Z98.890 - Other specified postprocedural states (5) Carotid artery stenosis: Status: Acute Qualifiers: Laterality: bilateral Qualified Code(s): I65.23 - Occlusion and stenosis of bilateral carotid arteries Category: Medical Code(s): I65.29 - Occlusion and stenosis of unspecified carotid artery (6) NSTEMI (non-ST elevated myocardial infarction): Status: Acute Category: Medical Code(s): I21.4 - Non-ST elevation (NSTEMI) myocardial infarction (7) Hyperlipidemia: Status: Acute Qualifiers: Hyperlipidemia type: mixed hyperlipidemia Qualified Code(s): E78.2 - Mixed hyperlipidemia Category: Medical Code(s): E78.5 - Hyperlipidemia, unspecified (8) Renal artery stenosis: Status: Acute Category: Medical Code(s): I70.1 - Atherosclerosis of renal artery Plan Genny Menendez is a 69-year-old female with a medical history significant for medical nonadherence, hypertension, PAD s/p left AKA, MARY s/p left endarterectomy, current tobacco smoker (though has cut down since left AKA) presents from home after several day onset of worsening midsternal chest pain. Patient states chest pain has also been radiating down her left arm but sometimes labor get numb. She has not had chest pains like this prior. Denies shortness of breath, dizziness, fever/chills, abdominal pain. She states she used to follow with Dr. Avery in [place] before he retired, has not followed up since. He performed her 10+ stents in her left lower extremity, but ultimately needed a left AKA due to ischemia. She states she used to be a profu se smoker, but has cut down quite a bit and smokes 1 cigarette a day a few times a week. She states she does not take medications because she felt as though she can come off of them, including her antihypertensives. Upon arrival, blood pressure was 247/133 and patient was started on a nitroprusside drip after discussing with Dr. Munoz. Other workup reveals initial troponin 0.43, BNP 2059, CTA chest without acute findings. On route, she was given aspirin and nitro which helped with chest pain. Given these findings, I discussed case with ED provider and I decided to admit patient for hypertensive emergency, NSTEMI. Patient's blood pressure doing better by morning. Off of nitroprusside drip. Taken for heart cath. Transition to oral blood pressure meds today. Monitor overnight. Anticipate discharge tomorrow. #Hypertensive emergency #Medication nonadherence ? Presented with BP 247/[address] Munoz recommended nitroprusside drip in the ED. -Off nitroprusside drip today. Will initiate irbesartan 75 mg nightly, continue carvedilol 12.5 mg twice daily. -Taken for left heart cath, discussed with cardiology, no significant CAD, will continue to manage medically. Did have renal artery stenosis, received 1 bare- metal stent. -Continue aspirin 81 mg daily, Plavix 75 mg daily. -Discontinue amlodipine ? Follow-up TSH, renal artery duplex. ? Follow-up ECHO. ? Continuous cardiac telemetry. - Kidney function with improvement today, BUN 15, creatinine 1.0. Magnesium 2.4 and potassium 4.1. #Chest pain #NSTEMI type I #Hyperlipidemia #History of PAD with 10+ stents #History of left AKA #History of MARY s/p left endarterectomy ? Presented with worsening midsternal chest pain with radiation down left arm. No chest pain, shortness of breath on my evaluation, comfortable. ? Initial troponin 0.43, up trended to 6.8. No ischemic changes on EKG. ? Continue carvedilol, irbesartan as above. Continue aspirin 81 mg daily and Plavix 75 mg daily. Status post left heart cath as above. - Continue atorvastatin 80 mg. ? LDL 226 - A1c 5.5 - Repeat CBC, CMP, magnesium ordered for the morning - Echo with low normal EF of 50%. Mild hypokinesis of basal inferolateral and lateral LV rock. No valvular stenosis or regurg Hypothyroid: TSH 11.9, initiate levothyroxine 50 mcg #Current tobacco smoker ? Has cut down, continues to smoke. Nicotine patch daily. DNI DVT prophylaxis: Therapeutic Lovenox Cardiac diet
--- NOTE | 2024-12-07 17:06 | PC.NURSE ---
notified of prolonged QT interval on patients telemetry rhythm. No new orders received. Continuation of care plan.
--- NOTE | 2024-12-07 17:50 | PC.NURSE ---
notified of patients blood pressure of 165/85(103). Per , If patients blood pressure sustains 170's systolic for two consecutive blood pressures, administer scheduled Irbesartan as ordered on Jun. Continuation of care plan.
[2024-12-07] MEDS: ACETAMINOPHEN 325MG TAB 650 MG PO (18:37)
[2024-12-07] MEDS: IRBESARTAN 75MG TABLET 75 MG PO (18:40)
--- NOTE | 2024-12-07 19:36 | PC.NURSE ---
Called Shadi Polanco APRN to see if patient could get a lidocaine patch for her back. He is going to place the order.
[2024-12-07] MEDS: LIDOCAINE 5% TRANSDERMAL PATCH 1 EACH TD (20:02)
[2024-12-07] MEDS: ATORVASTATIN 40MG TABLET 80 MG PO (20:02)
--- NOTE | 2024-12-07 20:41 | PC.NURSE ---
Radial band removed off of right wrist. Patient has hematoma above the incision site. cleaned the site and covered with gauze and tegaderm
--- NOTE | 2024-12-07 22:13 | ECG_ITS ---
APPROVED REPORT Exam: Resting ECG HR:62 bpm ECG Measurements Heart Rate 62 AXES CO 152 P 65 QRSd 86 QRS -43 QT 605 T 243 QTc 609 Conclusion SINUS RHYTHM LEFT AXIS DEVIATION [QRS AXIS < -30] ST DEVIATION AND MARKED T-WAVE ABNORMALITY, CONSIDER ANTEROLATERAL ISCHEMIA [-0.5+ mV T-WAVE IN I/aVL/V3-V6] ST DEVIATION AND MARKED T-WAVE ABNORMALITY, CONSIDER INFERIOR ISCHEMIA [-0.5+ mV T-WAVE IN II/aVF] PROLONGED QT INTERVAL CRITICAL TEST RESULT UNCONFIRMED REPORT Electronically signed by : Audie Carlton MD 12/08/2024 10:10:32
[2024-12-07 22:16] LABS: POC Glucose,Bedside 89 (70-110)
--- NOTE | 2024-12-07 22:17 | PC.NURSE ---
Patients blood pressure dropped to 80/40s while patient was sleeping. Patient was woke up and blood pressure was taken again. Patients pressure went up to 150s/70s. Patient complained of feeling like she was going to pass out. Patient has not had anything to eat besides a cracker so patient gluocse was checked. patients glucose was 89. EKG was obtained it was normal sinus with st depression same as what it has been. Patients blood pressure is now 117/58 and patient is no longer dizzy.
--- NOTE | 2024-12-07 22:51 | CA_ITS ---
APPROVED REPORT EXAM: Comprehensive 2D, Doppler, and color-flow Echocardiogram Referral Specialist: Pauline Buchanan CRT Ht: 5 ft 6 in Wt: 150lbs BSA: 1.77 BP: 156/91 mmHg Indications: Chest Pain, Hyperlipidemia, Hypertension/HDD, PAD, MARY S/P left endarterectomy 2D Dimensions LA Volume 23.90 mL LA Volume Index 13.20 mL/m2 (M/F) 16-34 M-Mode Dimensions RVDd 1.64 cm (0.9-2.6) LA Diam 2.42 cm (1.9-4.0) LVDd 4.68 cm (3.5-5.7) LVDs 3.39 cm (3.5-5.7) IVSd 1.25 cm (0.6-1.1) PWd 1.07 cm (0.6-1.1) EF (Teich) 53.50% FS 27.60% EDV (Teich) 101.30 mL TAPSE 1.96 (<1.7) ESV (Teich) 47.10 mL LV Diastology E Decel Time 120 (160-240 msec) E/A Ratio 0.51 MED A' 12.90 cm/s LAT A' 10.50 cm/s Aortic Valve AO Peak GR. 3.70 mmHg Mitral Valve MV E Max Haim. 45.0 (40-130 cm/s) MV A Velocity 87.0 (40-130 cm/s) E/A Ratio 0.51 MV PHT 35.0 ms Pulmonary Valve PV Peak Velocity 85.0 (50-150 cm/s) Tricuspid Valve TR P. Velocity 206.00 cm/s RAP Estimate 10.00 mmHg RVSP 27.00 mmHg Left Ventricle The left ventricle is normal size. Left ventricular systolic function is low normal. There is increased left ventricular wall thickness. There is mild hypokinesis of the basal inferolateral and lateral LV rock. The left ventricular diastolic function is indeterminate. LVEF is 50% Right Ventricle The right ventricle is normal size. The right ventricular systolic function is normal. Atria The left atrium size is normal. The right atrium size is normal. There is no color Doppler evidence of interatrial shunt. Aortic Valve The aortic valve opens well. There is no hemodynamically significant aortic valvular stenosis. Trace aortic regurgitation is present. Mitral Valve The mitral valve is normal in structure. No evidence of mitral valve stenosis. Trace mitral regurgitation is present. Tricuspid Valve The tricuspid valve leaflets are thin and pliable. Trace tricuspid regurgitation. There is insufficient TR jet to estimate RVSP. Pulmonic Valve The pulmonary valve is grossly normal in structure. Trace pulmonic valve regurgitation is present. Great Vessels The aortic root is normal in size. IVC is normal in size and collapses >50% with inspiration. Pericardium There is no pericardial effusion. Other Information Study Quality: Fair Conclusion Low normal LV systolic function (LVEF 50%). Mild hypokinesis of the basal inferolateral and lateral LV rock. No significant valvular stenosis or regurgitation. Electronically signed by : April Loyola MD 12/07/2024 13:06:28
[2024-12-08] VITALS (9 sets, daily range): BP systolic 110–163; BP diastolic 54–92; PULSE 50–76; RESP 13–19; TEMP 36.4–36.9; O2SAT 93–98; BMI 22.1
--- NOTE | 2024-12-08 03:13 | PC.NURSE ---
Patient had a bowel movement and then when she got back in the bed, patient became nausea and dizzy. BP was obtained while pt was in the sitting position. bp was 149/92. Roly Polanco APRN was called and he came over to check on the patient. he wanted orthostatic blood pressures done. when patient was sitting up bp was 137/74. after waiting 5 mins and patient was laying flat patients bp was 132/72. After waiting 5 more minutes patient bp was obtained with patient standing up. Patients bp was 163/87. Patient no longer has any symptoms.
--- NOTE | 2024-12-08 03:43 | PC.NURSE ---
Patient is becoming dizzy and nausea's again. Called Roly Polanco APRN he wants to give her zofran at this time.
--- NOTE | 2024-12-08 03:57 | PC.NURSE ---
Pulled zofran to give patient due to nausea and when i went to flush the iv before giving the med patient iv was occluded. This was the only iv access the patient had due to the other iv being pulled out earlier. Patient doesn't want another IV because she wants to go home. Patient stated I have the dizzy and nausea spells any time after i have had a cath, just this time isn't as bad.
--- NOTE | 2024-12-08 06:08 | PC.NURSE ---
Patient still feeling nausea's at times. Patient still not wanting another IV. Called Shadi Polanco APRN and he wants to change the iv dose of zofran to otd. Shadi Polanco will let dayshift hospitalist know patient no longer has iv access and doesn't want a new one placed
[2024-12-08] MEDS: LEVOTHYROXINE 50MCG (0.05MG) TAB 50 MCG PO (06:23)
[2024-12-08] MEDS: ONDANSETRON 4MG ODT 4 MG SL (06:23)
[2024-12-08 06:47] LABS: Hematocrit 37.8 % (37.0-47.0); Hemoglobin 11.7 g/dL (12.2-16.2); Immature Granulocytes % 0.2 %; Mean Corpuscular HGB Conc 31.0 g/dL (31.8-35.4); Mean Corpuscular Hemoglobin 26.7 pg (27.0-31.2); Mean Corpuscular Volume 86.1 fl (81-99); Nucleated Red Blood Cells % 0 %; Platelet Count 292 K/mm3 (142-424); Red Blood Count 4.39 M/mm3 (4.20-5.40); Red Cell Distribution Width-SD 48.3 fL; White Blood Count 8.5 K/mm3 (4.8-10.8)
[2024-12-08 07:01] LABS: Albumin Level 4.0 g/dl (3.5-5.0); Chloride 107 mmol/L (98-107); Sodium 136 mmol/L (136-145)
[2024-12-08 07:02] LABS: Potassium 4.1 mmoL/L (3.5-5.1)
[2024-12-08 07:04] LABS: Alanine Aminotransferase 11 U/L (12-78); Albumin/Globulin Ratio 1.4 (1.1-1.8); Anion Gap 13.1 mEq/L (5-15); Aspartate Amino Transferase 33 U/L (14-36); Blood Urea Nitrogen 21 mg/dl (7-17); Carbon Dioxide 20 mmol/L (22.0-30.0); Creatinine Clearance Estimated 54 mL/min (50-200); Creatinine,Serum 0.90 mg/dl (0.52-1.04); Estimated Glomerular Filt Rate 62 ml/min (>60); GFR (African American) 76 ML/MIN (>60); Globulin 2.8 g/dL (1.3-3.2); Total Protein,Serum 6.8 g/dl (6.3-8.2)
[2024-12-08 07:05] LABS: Alkaline Phosphatase 122 U/L (38-126); Bilirubin,Total 0.8 mg/dl (0.2-1.3); Calcium 9.2 mg/dl (8.4-10.2); Glucose 81 mg/dl (74-100); Magnesium 2.3 mg/dl (1.6-2.3)
[2024-12-08] MEDS: CARVEDILOL 12.5MG TABLET 12.5 MG PO (07:59)
[2024-12-08] MEDS: CLOPIDOGREL 75MG TAB 75 MG PO (07:59)
[2024-12-08] MEDS: ASPIRIN EC 81MG TABLET 81 MG PO (07:59)
--- NOTE | 2024-12-08 10:35 | CT_ITS ---
FINAL REPORT TECHNIQUE: Pre-and postcontrast images of the abdomen and pelvis were performed by computed tomography. Extensive 3-D reconstruction images were performed. A CTA was performed. This study was performed with techniques to keep radiation doses as low as reasonably achievable (ALARA). Individualized dose reduction techniques using automated exposure control or adjustment of mA and/or kV according to the patient''s size were employed. CLINICAL HISTORY: nausea and vomiting FINDINGS: ABDOMEN/PELVIS: The lung bases are clear. The liver parenchyma is homogeneous. There is thickening of the gallbladder wall. No surrounding inflammatory reaction is seen. The spleen, pancreas, adrenals, and kidneys are unremarkable. There is ectasia of the infrarenal abdominal aorta measuring 3.0 x 2.5 cm. Mural thrombus is seen in the posterior abdominal aorta. The appendix is normal. There are scattered diverticuli throughout the descending and sigmoid colon. There is no evidence of pelvic free fluid. CTA: There is 70% narrowing at the origin of the celiac axis. 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 Occlusion measures about 9 mm in length. The BLADE is patent. There are multiple collateral vessels seen surrounding the head of the pancreas. There is a renal artery stent in the right superior renal artery. There is a small inferior right renal artery. Dual left renal arteries are identified which appear adequately patent. 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 Thickening of the gallbladder wall. Recommend ultrasound to better characterize. Scattered diverticulosis without evidence of diverticulitis. Small abdominal aortic aneurysm. Reviewed, Interpreted and Dictated by Yannick Wright MD Transcribed by Daisha Piedra Authenticated and [facility]
--- NOTE | 2024-12-08 10:46 | PC.NURSE ---
Pt to CT at this time with radiology staff
[2024-12-08] MEDS: IOPAMIDOL-370 (76%);100ML BOTTLE 100 ML IV (11:02)
[2024-12-08] MEDS: 0.9 % SODIUM CHLORIDE 50 ML VIAL IV (11:02)
--- NOTE | 2024-12-08 11:56 | P.PN_ITS ---
Subjective Subjective Date: 12/08/24 Time: 08:30 Principal diagnosis: Non-STEMI, malignant hypertension Interval history: This is a 69-year-old white female who presented to the emergency department with complaints of chest pain. She was found to have an elevated troponin consistent with a non-STEMI and she had a malignantly elevated blood pressure at 247/103. She was initially started on a nitroprusside drip. This has been stopped. She underwent left cardiac catheterization yesterday and was found to have significant coronary artery disease that is best managed medically. She will need to be on aspirin and Plavix for 1 year. She also had severe right renal artery stenosis and had 1 stent placed to her right renal artery. As mentioned above she is on Plavix and aspirin for dual antiplatelet therapy. She is now off of the nitroprusside drip and her blood pressure is under good control. This morning she denies any chest pain or pressure. She denies any shortness of breath or or edema. She has been having some nausea and vomiting. She states that this is new for her this morning. She does report having an intolerance to Plavix in the past causing her nausea. She denies any fever, chills, diarrhea. Exam Data for Last 24 hours Vital signs and Labs for Last 24 Hours: Temp Pulse Resp BP Pulse Ox O2 Del Method FiO2 98.4 F 60 18 121/57 L 95 Room Air 96 12/08/24 08:00 12/08/24 09:00 12/08/24 09:00 12/08/24 09:00 12/08/24 09:00 12/08/24 10:40 12/06/24 20:00 Laboratory Results - last 24 hr 12/07/24 14:06: Activated Clotting Time 229 H* 12/07/24 14:18: Activated Clotting Time 265 H* 12/07/24 14:42: Activated Clotting Time 258 H* 12/07/24 15:21: Activated Clotting Time 165 H* D 12/07/24 22:07: POC Glucose 89 12/08/24 04:57: WBC 8.5, RBC 4.39, Hgb 11.7 L, Hct 37.8, MCV 86.1, MCH 26.7 L, MCHC 31.0 L, RDW 15.3, Plt Count 292, MPV 11.7 H, Neut % (Auto) 73.2, Lymph % (Auto) 17.1, [place] % (Auto) 6.5, Eos % (Auto) 1.5, Baso % (Auto) 1.5, Neut # (Auto) 6.2, Lymph # (Auto) 1.5, [place] # (Auto) 0.6, Eos # (Auto) 0.1, Baso # (Auto) 0.1, Sodium 136, Potassium 4.1, Chloride 107, Carbon Dioxide 20 L, Anion Gap 13.1, BUN 21 H D, Creatinine 0.90, Estimated Creat Clear 54, Estimated GFR 62, Est GFR ( Amer) 76, Glucose 81, Calcium 9.2, Magnesium 2.3, Total Bilirubin 0.8, AST 33 D, ALT 11 L, Alkaline Phosphatase 122, Total Protein 6.8, Albumin 4.0, Globulin 2.8, Albumin/Globulin Ratio 1.4 I & O for Last 24 hours: Intake & Output 12/05/24 12/06/24 12/07/24 12/08/24 23:59 23:59 23:59 23:59 Intake Total 153.627 / 153.627 624.116 / 864.116 340 / 340 Output Total 400 / 1000 1311 / 1411 350 / 350 Balance -246.373 / -846.373 -686.884 / -546.884 -10 / -10 Weight 150 lb 143 lb 1.28 oz 137 lb 12.8 oz Narrative: Left heart cath shows: The left main artery Normal The left anterior descending artery Has proximal 20 and 40% stenosis followed by an 80% mid vessel to distal stenosis along a small caliber LAD and a highly tortuous area The circumflex artery Is a large dominant vessel and has a heavily calcified 40 to 50% calcified stenosis prior to the ramus intermedius. The ramus intermedius is small to medium followed by an additional proximal complex 30 to 40% stenosis. There are 2 small obtuse marginal arteries followed by a larger bifurcating distal obtuse marginal artery which has proximal 40 to 50% long tubular stenoses which involved proximal to and distal to the bifurcation of each limb. The terminal obtuse marginal artery is tortuous and has a mid vessel 50 to 60% calcified stenosis along a tortuous bend with a small to medium size amount of distal obtuse marginal artery The right coronary artery Small nondominant with proximal calcified 50% in the additional 80 to 90% mid vessel stenosis and a vessel smaller than 2 mm in diameter The ROMANO ventriculogram reveals Normal 60% The left ventricular end-diastolic pressure 10 mmHg Right renal artery has a dual arterial supply. The superior branch which supplies 80% of the kidney has a proximal 80% calcified stenosis while the inferior branch is normal Left renal artery singular normal IMPRESSION Coronary artery disease as described above which is best managed medically Normal ejection fraction Normal LVEDP Severe right renal artery stenosis Successful stenting of the right renal artery severe disease reduced to 0% with 1 bare-metal balloon expandable stent PLAN 1. Aspirin and Plavix for 1 year 2. Control of hypertension 3. LDL less than 55 to be achieved with high intensity statin 4. Avoidance of tobacco products 5. Cardiac rehabilitation Constitutional Constitutional: no acute distress and average body habitus *Routine HEENT Exam Head: Present normocephalic and atraumatic ENT: Present mucous membranes moist *Routine Neck Exam Neck: Present supple, full ROM and normal carotid upstroke; Absent JVD, carotid bruit or lymphadenopathy *Routine Respiratory Exam Respiratory: Present CTA bilaterally, normal respiratory effort, able to speak in complete sentences and symmetric chest movement *Routine Cardiovascular Exam Cardiovascular: Present RRR, Normal S1 and Normal S2; Absent murmur or gallop *Routine Abdominal Exam Abdominal: Present soft and normoactive bowel sounds; Absent tenderness, distended or organomegaly *Routine Extremities Exam Extremities: Present full ROM, pulses intact, normal capillary refill and amputation (Left AKA); Absent cyanosis, clubbing or edema *Routine Skin Exam Skin: Present intact and warm; Absent erythema *Routine Neurological Exam Neurological: Present alert, oriented X3 and CN II-XII intact; Absent sensory deficit or motor deficit Routine Psychiatric Exam Psychiatric: Present normal affect Progress Note: A&P Assessment and plan (1) NSTEMI (non-ST elevated myocardial infarction): Status: Acute (2) CAD in [place] artery: Status: Acute (3) Renal artery stenosis: Status: Acute (4) Hypertension: Status: Acute (5) Hyperlipidemia: Status: Acute (6) PAD (peripheral artery disease): Status: Acute (7) Hx of AKA (above knee amputation): Status: Acute (8) History of endarterectomy: Status: Acute (9) Carotid artery stenosis: Status: Acute (10) Tobacco user: Status: Acute Assessment and Plan Assessment and Plan for All Diagnoses:: Plan: 1. the patient was admitted to the hospital due to hypertension emergency and chest pain. She is found to have an elevated troponin consistent with a non- STEMI. She underwent left cardiac catheterization yesterday and was found to have significant coronary artery disease that is best managed medically. She will need to be on dual antiplatelet therapy for 1 year. She was started on Plavix and aspirin. 2. This morning the patient was complaining of nausea and vomiting that is new for her today. She did get a CTA of her abdomen which preliminarily does not appear to have any significant vascular findings. She does report having an in tolerance to Plavix in the past. Will switch her over to Brilinta and aspirin for dual antiplatelet therapy for 1 year. 3. CAD is present. She will be on dual antiplatelet therapy with Brilinta and aspirin for 1 year. 4. Renal artery stenosis is present. She is status post right renal artery stenting with 1 bare-metal stent. Brilinta and aspirin for dual antiplatelet therapy. 5. Her blood pressure is well-controlled today. Continue carvedilol and irbesartan. 6. Her LDL goal is less than 55. Her LDL is 226. She has been started on a statin. She states that she was on injectable cholesterol medicines in the past but her insurance stopped paying for this so she just stopped taking all of her cholesterol medicines altogether. 7. The patient does have a history of carotid artery stenosis, status post left carotid endarterectomy. 8. The patient does have a history of PAD and is status post left AKA due to a complication from previous angiogram of her left lower extremity. 9. The patient has a preserved ejection fraction at 50%. 10. Her TSH significantly elevated at 11.9. She has been started on Synthroid. 11. No further recommendations at this time from a cardiac standpoint. She can follow-up in cardiology clinic in 1 week once she is discharged from the hospital. She will need to be discharged on the following cardiac medications: Aspirin 81 mg daily Lipitor 80 mg p.o. nightly Carvedilol 6.25 mg p.o. twice daily Brilinta 90 mg BID Irbesartan 75 mg daily Levothyroxine 50 mcg daily Thank you for the opportunity to help participate in the care of this patient. All recommendations and orders are per Dr. Loyola.
--- NOTE | 2024-12-08 12:15 | EXP.DC.SUM ---
General Admission date:: 12/06/24 Discharge date: 12/08/24 HPI HPI HPI: Genny Menendez is a 69-year-old female with a medical history significant for medical nonadherence, hypertension, PAD s/p left AKA, MARY s/p left endarterectomy, current tobacco smoker (though has cut down since left AKA) presents from home after several day onset of worsening midsternal chest pain. Patient states chest pain has also been radiating down her left arm but sometimes labor get numb. She has not had chest pains like this prior. Denies shortness of breath, dizziness, fever/chills, abdominal pain. She states she used to follow with Dr. Avery in [place] before he retired, has not followed up since. He performed her 10+ stents in her left lower extremity, but ultimately needed a left AKA due to ischemia. She states she used to be a profuse smoker, but has cut down quite a bit and smokes 1 cigarette a day a few times a week. She states she does not take medications because she felt as though she can come off of them, including her antihypertensives. Upon arrival, blood pressure was 247/133 and patient was started on a heparin drip after discussing with Dr. Munoz. Other workup reveals initial troponin 0.43, BNP 2060, CTA chest without acute findings. On route, she was given aspirin and nitro which helped with chest pain. Given these findings, I discussed case with ED provider and I decided to admit patient for hypertensive emergency, NSTEMI. Hospital Course Hospital Course Hospital Course: Genny Menendez is a 69-year-old female with a medical history significant for medical nonadherence, hypertension, PAD s/p left AKA, MARY s/p left endarterectomy, current tobacco smoker (though has cut down since left AKA) presents from home after several day onset of worsening midsternal chest pain. Patient states chest pain has also been radiating down her left arm but sometimes labor get numb. She has not had chest pains like this prior. Denies shortness of breath, dizziness, fever/chills, abdominal pain. She states she used to follow with Dr. Avery in [place] before he retired, has not followed up since. He performed her 10+ stents in her left lower extremity, but ultimately needed a left AKA due to ischemia. She states she used to be a profuse smoker, but has cut down quite a bit and smokes 1 cigarette a day a few times a week. She states she does not take medications because she felt as though she can come off of them, including her antihypertensives. Upon arrival, blood pressure was 247/133 and patient was started on a nitroprusside drip after discussing with Dr. Munoz. Other workup reveals initial troponin 0.43, BNP 2060, CTA chest without acute findings. On route, she was given aspirin and nitro which helped with chest pain. Given these findings, I discussed case with ED provider and I decided to admit patient for hypertensive emergency, NSTEMI. Blood pressure showed improvement during admission. Able to wean off nitroprusside drip and advance to oral antihypertensives. Taken for left heart cath. Recommend medically managing CAD. Did receive 1 stent to renal artery. Blood pressure is overall better. Stable to discharge home. Follow-up with cardiology as an outpatient for further management. Problems addressed as follows: #Hypertensive emergency #Medication nonadherence #Chest pain #NSTEMI type I #Hyperlipidemia #History of PAD with 10+ stents #History of left AKA #History of MARY s/p left endarterectomy ? Presented with BP 247/133 with NSTEMI. Cardiology was consulted and Dr. Munoz recommended nitroprusside drip in the ED. admitted to ICU for further management. Able to gradually wean off nitroprusside drip. Transitioned to oral blood pressure control with irbesartan and carvedilol. Responding well. Will continue irbesartan 75 mg nightly and carvedilol 6.25 mg twice daily. Given her worsening chest pain and uptrending troponin, decision was made by cardiology to proceed with left heart cath. Patient was found to not have CAD amenable to stenting. Recommended continued medical management. Did have renal artery stenosis however and received 1 bare-metal stent. Recommend continuing aspirin 81 mg daily and Brilinta 90 mg twice daily. Troponin was initially 0.43 prior to cath and trended to 6.8. Had no ischemic changes on her EKG. LDL elevated at 226. Continue Lipitor high intensity 80 mg daily. A1c normal at 5.5. Echo with low normal EF of 50%. Had mild hypokinesis of the basal inferolateral and lateral LV rock. No valvular stenosis or regurgitation. Of note, developed nausea and upset stomach after initiating Plavix and blood pressure control meds. Given patient's significant vasculopathy, evaluated abdominal vasculature with a CTA. She has some mild findings but has developed collateralization. No blockages necessitating intervention at this time. Continue medical management. No signs of leeanne bowel ischemia. Plavix was discontinued and was switched to Brilinta due to nausea after Plavix. States she has had similar symptoms in the past. - The patient does have a history of carotid artery stenosis, status post left carotid endarterectomy. - The patient does have a history of PAD and is status post left AKA due to a complication from previous angiogram of her left lower extremity. Hypothyroid: TSH 11.9, initiate levothyroxine 50 mcg. Needs repeat TSH in 4 to 6 weeks #Current tobacco smoker: Has cut down, continues to smoke. Nicotine patch daily during admission. Encouraged cessation. Total time spent on discharge 42 minutes in counseling, documentation, chart review, and direct care with patient. Exam Data for Last 24 hours Vital signs and Labs for Last 24 Hours: Temp Pulse Resp BP Pulse Ox O2 Del Method FiO2 98.4 F 60 18 121/57 L 95 Room Air 96 12/08/24 08:00 12/08/24 12:00 12/08/24 09:00 12/08/24 09:00 12/08/24 09:00 12/08/24 10:40 12/06/24 20:00 Laboratory Results - last 24 hr 12/07/24 14:06: Activated Clotting Time 229 H* 12/07/24 14:18: Activated Clotting Time 265 H* 12/07/24 14:42: Activated Clotting Time 258 H* 12/07/24 15:21: Activated Clotting Time 165 H* D 12/07/24 22:07: POC Glucose 89 12/08/24 04:57: WBC 8.5, RBC 4.39, Hgb 11.7 L, Hct 37.8, MCV 86.1, MCH 26.7 L, MCHC 31.0 L, RDW 15.3, Plt Count 292, MPV 11.7 H, Neut % (Auto) 73.2, Lymph % (Auto) 17.1, [place] % (Auto) 6.5, Eos % (Auto) 1.5, Baso % (Auto) 1.5, Neut # (Auto) 6.2, Lymph # (Auto) 1.5, [place] # (Auto) 0.6, Eos # (Auto) 0.1, Baso # (Auto) 0.1, Sodium 136, Potassium 4.1, Chloride 107, Carbon Dioxide 20 L, Anion Gap 13.1, BUN 21 H D, Creatinine 0.90, Estimated Creat Clear 54, Estimated GFR 62, Est GFR ( Amer) 76, Glucose 81, Calcium 9.2, Magnesium 2.3, Total Bilirubin 0.8, AST 33 D, ALT 11 L, Alkaline Phosphatase 122, Total Protein 6.8, Albumin 4.0, Globulin 2.8, Albumin/Globulin Ratio 1.4 I & O for Last 24 hours: Intake & Output 12/05/24 12/06/24 12/07/24 12/08/24 23:59 23:59 23:59 23:59 Intake Total 153.627 / 153.627 624.116 / 864.116 340 / 340 Output Total 400 / 1000 1311 / 1411 350 / 350 Balance -246.373 / -846.373 -686.884 / -546.884 -10 / -10 Weight 68.039 kg 64.9 kg 62.505 kg Constitutional Constitutional: no acute distress, average body habitus, chronically ill appearing and cooperative *Routine HEENT Exam Head: Present normocephalic Eye: Present EOMI and PERRL ENT: Present mucous membranes moist *Routine Neck Exam Neck: Present supple; Absent lymphadenopathy Comments: Well-healed endarterectomy scar on left side of neck *Routine Respiratory Exam Respiratory: Present CTA bilaterally; Absent rhonchi, wheezes or crackles *Routine Cardiovascular Exam Cardiovascular: Present RRR *Routine Abdominal Exam Abdominal: Present soft and normoactive bowel sounds; Absent tenderness *Routine Rectal Exam Patient deferred: visual exam *Routine Exam Patient deferred: external exam *Routine Extremities Exam Extremities: Absent cyanosis, clubbing or edema Comments: Left AKA *Routine Skin Exam Skin: Present intact and warm; Absent rash *Routine Neurological Exam Neurological: Present alert, oriented X3 and moving all extremities; Absent altered mental status Results Data Completed and Pending Labs on day of discharge: Labs from last 24 hours 12/08/24 12/07/24 12/07/24 04:57 22:07 15:21 WBC 8.5 RBC 4.39 Hgb 11.7 L Hct 37.8 MCV 86.1 MCH 26.7 L MCHC 31.0 L RDW 15.3 Plt Count 292 MPV 11.7 H Neut % (Auto) 73.2 Lymph % (Auto) 17.1 [place] % (Auto) 6.5 Eos % (Auto) 1.5 Baso % (Auto) 1.5 Neut # (Auto) 6.2 Lymph # (Auto) 1.5 [place] # (Auto) 0.6 Eos # (Auto) 0.1 Baso # (Auto) 0.1 Activated Clotting Time 165 H* D Sodium 136 Potassium 4.1 Chloride 107 Carbon Dioxide 20 L Anion Gap 13.1 BUN 21 H D Creatinine 0.90 Estimated Creat Clear 54 Estimated GFR 62 Est GFR ( Amer) 76 Glucose 81 POC Glucose 89 Calcium 9.2 Magnesium 2.3 Total Bilirubin 0.8 AST 33 D ALT 11 L Alkaline Phosphatase 122 Total Protein 6.8 Albumin 4.0 Globulin 2.8 Albumin/Globulin Ratio 1.4 12/07/24 12/07/24 12/07/24 14:42 14:18 14:06 WBC RBC Hgb Hct MCV MCH MCHC RDW Plt Count MPV Neut % (Auto) Lymph % (Auto) [place] % (Auto) Eos % (Auto) Baso % (Auto) Neut # (Auto) Lymph # (Auto) [place] # (Auto) Eos # (Auto) Baso # (Auto) Activated Clotting Time 258 H* 265 H* 229 H* Sodium Potassium Chloride Carbon Dioxide Anion Gap BUN Creatinine Estimated Creat Clear Estimated GFR Est GFR ( Amer) Glucose POC Glucose Calcium Magnesium Total Bilirubin AST ALT Alkaline Phosphatase Total Protein Albumin Globulin Albumin/Globulin Ratio DS: Diagnosis Discharge Diagnosis (1) NSTEMI (non-ST elevated myocardial infarction): Status: Acute Code(s): I21.4 - Non-ST elevation (NSTEMI) myocardial infarction (2) CAD in [place] artery: Status: Acute Code(s): I25.10 - Atherosclerotic heart disease of [place] coronary artery without angina pectoris (3) Renal artery stenosis: Status: Acute Code(s): I70.1 - Atherosclerosis of renal artery (4) Hypertension: Status: Acute Code(s): I10 - Essential (primary) hypertension Qualifiers: Hypertension type: primary hypertension Qualified Code(s): I10 - Essential (primary) hypertension (5) Hyperlipidemia: Status: Acute Code(s): E78.5 - Hyperlipidemia, unspecified Qualifiers: Hyperlipidemia type: mixed hyperlipidemia Qualified Code(s): E78.2 - Mixed hyperlipidemia (6) PAD (peripheral artery disease): Status: Acute Code(s): I73.9 - Peripheral vascular disease, unspecified (7) Hx of AKA (above knee amputation): Status: Acute Code(s): Z89.619 - Acquired absence of unspecified leg above knee Qualifiers: Laterality: left Qualified Code(s): Z89.612 - Acquired absence of left leg above knee (8) History of endarterectomy: Status: Acute Code(s): Z98.890 - Other specified postprocedural states (9) Carotid artery stenosis: Status: Acute Code(s): I65.29 - Occlusion and stenosis of unspecified carotid artery Qualifiers: Laterality: bilateral Qualified Code(s): I65.23 - Occlusion and stenosis of bilateral carotid arteries (10) Tobacco user: Status: Acute Code(s): Z72.0 - Tobacco use Meds Home Medications and Allergies Home Medications ?Medication ?Instructions ?Recorded ?Confirmed ?Type aspirin 81 mg tablet,delayed 81 mg PO DAILY 30 days #30 tabs 12/08/24 Rx release atorvastatin 80 mg tablet (Lipitor) 80 mg PO HS #30 tabs 12/08/24 Rx carvedilol 6.25 mg tablet 6.25 mg PO BID 30 days #60 tabs 12/08/24 Rx irbesartan 75 mg tablet 75 mg PO HS 30 days #30 tabs 12/08/24 Rx levothyroxine 50 mcg tablet 50 mcg PO DAILYDM 30 days #30 tabs 12/08/24 Rx (Synthroid) ticagrelor 90 mg tablet (Brilinta) 90 mg PO BID 30 days #60 tabs 12/08/24 Rx New Prescriptions to Start Prescriptions: Kendall Grayson atorvastatin [Lipitor] Kendall Ibrahim carvedilol Kendall Ibrahim irbesartan Kendall Ibrahim levothyroxine [Synthroid] Kendall Ibrahim ticagrelor [Brilinta] Kendall Ibrahim Allergies Allergy/AdvReac Type Severity Reaction Status Date / Time No Known Allergies Allergy Verified 12/06/24 18:19 Discharge Plan Disposition Patient Disposition: Home, Self-Care Condition: Fair Discharge Order Discharge Orders: Discharge Order (Routine); Ordered 12/08/24 Ordered By: Kendall Ibrahim Follow up Plan Follow up with: Sangita Suarez APRN [Nurse Practitioner, Cardiology] - 12/21/24 9:45 am Todd Perez DO [Staff Physician, Family Practice] - Enter time for follow up Referral Note: Call [phone] to schedule a new patient appointment! Anmol Monroy MD [Staff Physician, General Surgery] - 12/15/24 1:00 pm Referral Note: cholelithiasis Prescriptions/Medication Reconciliation: New aspirin 81 mg Tablet,Delayed Release (Dr/Ec) 81 mg PO DAILY 30 Days Qty: 30 0RF atorvastatin [Lipitor] 80 mg tablet 80 mg PO HS Qty: 30 0RF carvedilol 6.25 mg Tablet 6.25 mg PO BID 30 Days Qty: 60 0RF levothyroxine [Synthroid] 50 mcg Tablet 50 mcg PO DAILYDM 30 Days Qty: 30 0RF irbesartan 75 mg Tablet 75 mg PO HS 30 Days Qty: 30 0RF ticagrelor [Brilinta] 90 mg Tablet 90 mg PO BID 30 Days Qty: 60 0RF Other Ambulatory Orders: US abdomen limited (Routine) Timeframe: 2 Days Facility: [facility] - Location: Radiology Ordered By: Kendall Ibrahim Problem Reconciliation Problems Reviewed?: Yes Patient Discharge Instructions ACTIVITY: Continue current activity DIET: continue same diet and low fat, low cholesterol Patient Instructions: Cardiac Catheterization, High Blood Pressure, DI for Lysis of Adhesions, DI for Surgical Site Infection, DI for Moderate Sedation Print Language: [place] Providers Primary Care Provider: Provider,Referral Admit Provider: Rigoberto Kat Attending Provider: Rigoberto Kat
--- NOTE | 2024-12-08 15:16 | PC.NURSE ---
Pt left the ICU with ICU staff to discharge home
--- NOTE | 2024-12-10 10:45 | SW/DCPLANNER ---
Spoke with patient on the phone. Patient stated that she is doing good. Patient stated that she is aware of her upcoming appointments. Patient stated that she was able to get her new medicine picked [facility] from [facility]. Patient stated that she has no concerns or questions at this time. Cordlel Quinonez
== END 2024-12-08 15:16 | disposition home or self-care (01) | DRG 673 ==
LOC: ER 16:28 → ICU 17:58
PROVIDERS: Internal Medicine; Nurse Practitioner; Nurse Practitioner Family; Admitting Provider Student in an Organized Health Care Education/Training Program; Emergency Provider Student in an Organized Health Care Education/Training Program; Visit Provider Student in an Organized Health Care Education/Training Program
PROC: 4A023N7 Measurement of Cardiac Sampling and Pressure, Left Heart, Percutaneous Approach (ICD-10-PCS; CPT 93452; principal; 2024-12-07 12:30)
PROC: 04793DZ Dilation of Right Renal Artery with Intraluminal Device, Percutaneous Approach (ICD-10-PCS; 2024-12-07 12:30)
DX: I70.1 Atherosclerosis of renal artery (principal); I21.A1 Myocardial infarction type 2; I16.1 Hypertensive emergency; I10 Essential (primary) hypertension; E03.9 Hypothyroidism, unspecified; I73.9 Peripheral vascular disease, unspecified; I65.23 Occlusion and stenosis of bilateral carotid arteries; I25.10 Atherosclerotic heart disease of native coronary artery without angina pectoris; E78.2 Mixed hyperlipidemia; F17.210 Nicotine dependence, cigarettes, uncomplicated; T46.5X6A Underdosing of other antihypertensive drugs, initial encounter; Z91.148 Patient's other noncompliance with medication regimen for other reason; Z89.612 Acquired absence of left leg above knee; Z98.890 Other specified postprocedural states
CPT/HCPCS: 36415; 71045; 71275; 74174; 80053; 80061; 82962; 83036; 83735; 83880; 84439; 84443; 84484; 85025; 85347; 93005; 93306; 93976; 99152; 99153; 99285; C1725; C1769; C1876; C1887; C1894; J1200; J1450; J1644; J1650; J1920; J2003; J2250; J2405; J2720; J3010; J7040; J7060; Q0162; Q9967

== ENCOUNTER 2024-12-15 09:30 | Outpatient (CLI) | payer MEDICARE, MEDICAID, SELFPAY ==
--- OUTSIDE RECORDS SUMMARY | 2024-12-15 09:33 | XMS_ITS | Clinical Summary ---
[facility] [address] [place] [address] Care Team Providers Care Personnel Quality Assurance Auditor Name Role Phone Unavailable Primary Care Provider [...] 2023 INFLUENZA VACCINE 01/19/2025 Insurance [employer] BY [employer]
--- OUTSIDE RECORDS SUMMARY | 2024-12-15 09:33 | XMS_ITS | Clinical Summary ---
Author Organization [facility] Address [address] [place] [address] Phone Care Team Providers Care Professor Of Latin American Studies Name Role Phone Nonstaff, Referring Primary Care [...] Superficial femoral artery occlusion 02/19/2022 Atherosclerosis of [place] of extremity with rest pain 02/19/2022 Urinary retention 02/19/2022 Vascular disease 02/18/2022 Hyperlipidemia 12/06/2019 PVD (peripheral vascular disease) 12/06/2019 Overview (02/20/2022): Required interventional radiology guided tPA lysis. Clinically improved after lysis and anticoagulation. Tobacco abuse 12/06/2019 Left carotid artery stenosis 12/02/2019 Overview (12/02/2019): Added automatically from request for surgery [id number] Immunizations Immunization Administration Dates Next Due Influenza [...] IR REVAS FEM POP ART UNILAT W STEEPLECHASE JOCKEY 02/19/2022 IR REVAS FEM POP ART UNILAT W STEEPLECHASE JOCKEY 02/19/2022 Vick Torres MD [facility] IR IR TRANS ART OR FILEMON FOR THRO MB SUBSQ DAY FU CATH CONT INJ+CLOS 02/19/2022 IR TRANS ART OR VENOUS FOR THROMB SUBSQ DAY FU CATH CONT INJECT AND CLOSURE 02/19/2022 Vick Torres MD [facility] IR IR REVAS FEM POP ART UNILAT W STEEPLECHASE JOCKEY 02/19/2022 IR REVAS FEM POP ART UNILAT W STEEPLECHASE JOCKEY 02/19/2022 Vick Torres MD [facility] IR FEMORAL [...] Date Smoking Tobacco: Every Day Cigarettes 0.3 51.7 Started: 04/21/1973 Smokeless Tobacco: Never Tobacco Cessation:Ready [...] EDT Impressions 11/16/2021 3:41 PM EDT Negative ([id number]) ~ RECOMMENDATION: Routine screening mammogram in 1 [...] the next mammogram, in accordance with the [employer] and the Society of Breast Imaging recommendations. Narrative 11/16/2021 3:41 PM EDT Procedure:MM MAMMO DIGITAL EMERALD SCREEN BILAT ~ Reason for exam: screening, asymptomatic. Z12.31-Encounter for screening mammogram for malignant neoplasm of [id number] ~ MM MAMMO DIGITAL EMERALD SCREEN BILAT Bilateral CC and MLO view(s) were taken. There are scattered fibroglandular densities. Prior study comparison: November 30, 2018. No significant interval change. ~ Procedure Note Tammy Mckee MD - 11/16/2021 Procedure:MM MAMMO DIGITAL EMERALD SCREEN BILAT ~ Reason for exam: screening, asymptomatic. Z12.31-Encounter for screening mammogram for malignant neoplasm of [id number] ~ MM MAMMO DIGITAL EMERALD SCREEN BILAT Bilateral CC and MLO view(s) were taken. There are scattered fibroglandular densities. Prior study comparison: November 30, 2018. No significant interval change. ~ IMPRESSION: Negative ([id number]) ~ RECOMMENDATION: Routine screening mammogram in 1 [...] the next mammogram, in accordance with the [employer] and the Society of Breast Imaging recommendations. Janett F[place] [facility] [place] Final Result from Last 3 Months or Most Recently Relevant to Health Maintenance Insurance [id number] Advance Directives For more information, please contact: [phone] * Full Code (Latest Code Status on File) Date Activated Date Inactivated Comments 02/28/2022 9:04 PM 03/06/2022 10:00 PM * Full Code Date Activated Date Inactivated Comments 02/18/2022 12:17 PM 02/20/2022 8:30 PM * Full Code Date Activated Date Inactivated Comments 12/06/2019 7:53 PM 12/07/2019 1:53 PM Care Teams Professor Of Latin American Studies Relationship Specialty Start Date End Date Nonstaff, Referring PCP - General 03/01/22
--- NOTE | 2024-12-15 10:00 | US_ITS ---
FINAL REPORT TECHNIQUE: Sonographic images of the right upper quadrant were obtained. CLINICAL HISTORY: RUQ pain, abnormal GB on CT abdomen COMPARISON: None FINDINGS: PANCREAS: Unremarkable. LIVER: Homogeneous. No focal hepatic lesion. No intrahepatic biliary ductal dilatation. GALLBLADDER: Multiple gallstones are present in the gallbladder. Gallbladder wall thickening is present. COMMON DUCT: 5 mm. Normal for age. RIGHT KIDNEY: The right kidney measures 9.2 cm. There is no hydronephrosis, mass, or stone. FREE FLUID: None. IMPRESSION: Multiple gallstones are present in the gallbladder with associated gallbladder wall thickening. Cholecystitis is not excluded. No biliary ductal dilatation is present. Reviewed, Interpreted and Dictated by Malathi Licona MD Transcribed by Nina Jolley Authenticated and [facility]
== END 2024-12-15 23:59 | disposition home or self-care (01) ==
LOC: RAD 09:31
PROVIDERS: PCP Internal Medicine Adolescent Medicine; Visit Provider Internal Medicine Adolescent Medicine
DX: K82.8 Other specified diseases of gallbladder (principal); K80.20 Calculus of gallbladder without cholecystitis without obstruction
CPT/HCPCS: 76705

== ENCOUNTER 2025-03-28 18:19 | Emergency (ER) | payer MEDICARE, MEDICAID, SELFPAY ==
[2025-03-28] VITALS (18 sets, daily range): BP systolic 153–224; BP diastolic 86–136; PULSE 77–120; RESP 18–22; TEMP 36.8; O2SAT 97–99; BMI 22.6
--- NOTE | 2025-03-28 18:23 | ED_ITS ---
Discharge Plan Disposition Patient Disposition: Admitted Condition: Good Clinical Impressions Clinical Impression: Hypertensive emergency, Brain TIA, Stenosis of intracranial vessel Discharge ED Provider: Saba Bentley Adult HPI General Chief complaint: Chest Pain Stated complaint: chest pain Time Seen by Provider: 03/28/25 18:23 History of Present Illness HPI narrative: Patient is a 69-year-old female who presented to the emergency department with concern for headache, chest pain that started at 8:00 this morning. Patient states that she went to bed like normal and woke up with her symptoms. EMS was called by family given concern for strokelike symptoms given patient's speech. When EMS arrived, patient was significantly hypertensive, patient was given 2 nitros and route. Patient states that on arrival to the emergency department, her headache resolved but patient was still having a dull like chest pain. Patient denied any shortness of breath. Patient denied any urinary symptoms. Patient denied any abdominal pain nausea vomiting or diarrhea. Patient states that she takes blood pressure medications. Patient took her blood pressure medications this morning and takes her evening blood pressure Medications around 10 PM. Patient states that her headache was a dull like nature. Patient states that she has significant atherosclerotic disease which is why she had her left lower extremity amputated. Patient takes Brilinta and aspirin. His last known normal was midnight. Patient states that her speech is much improved here in the emergency department. Her family states that her symptoms have been intermittent. Related Data Previous Rx's ?Medication ?Instructions ?Recorded levothyroxine 50 mcg tablet 50 mcg PO DAILYDM 30 days #30 tabs 12/08/24 (Synthroid) aspirin 81 mg tablet,delayed 81 mg PO DAILY 30 days #9 0 tabs 12/21/24 release atorvastatin 80 mg tablet (Lipitor) 80 mg PO HS #90 ta bs 12/21/24 carvedilol 6.25 mg tablet 6.25 mg PO BID 30 days #120 tabs 12/21/24 irbesartan 150 mg tablet 150 mg PO HS 30 days #90 tab s 12/21/24 ticagrelor 90 mg tablet (Brilinta) 90 mg PO BID 30 day s #120 tabs 12/21/24 Allergies Allergy/AdvReac Type Severity Reaction Status Date / Time No Known Allergies Allergy Verified 12/21/24 09:57 [facility] Disclaimer: The information contained in this section may have been updated after the patient was seen, as this information can be updated by other users. Medical History CAD in [place] artery Renal artery stenosis Angina pectoris Tobacco user Hyperlipidemia NSTEMI (non-ST elevated myocardial infarction) Carotid artery stenosis PAD (peripheral artery disease) Hypertensive emergency Hypertension History of peripheral arterial disease History of DVT (deep vein thrombosis) Surgical History History of endarterectomy Hx of AKA (above knee amputation) Family History Other Family history of MS (myocardial infarction) Family history of cancer Family history of coronary artery disease Family history of stroke Social History Smoking Status: Current every day smoker alcohol intake: never current occupational status: unemployed Travel in the last 8 weeks?: None Have you lived/traveled outside US in past 30 days?: No Contact w/someone who lives/traveled outside US past 30 days?: No Exposure to someone with infectious disease in past 14 days?: No Do you have a fever (greater than 100.4 F or 38 C)?: No Have you tested positive for COVID-19?: No Exposed to someone with COVID-19 in past 14 days?: No Do you have a sore throat?: No Do you have a cough?: No Do you have any weakness?: No Do you have any diarrhea?: No Are you experiencing any unusual bleeding?: No Do you have any muscle aches/pain?: No Do you have any abdominal pain?: No Are you experiencing loss of taste or smell?: No Other Medical History Have you received the Flu Vaccine for this season: No Have you received the Pneumonia Vaccine: No ROS Obtained: Yes All systems reviewed & no additional complaints except as documented and Yes Systems reviewed as appropriate & no additional complaints except as documented Physical Exam General General appearance: alert and in no apparent distress Head Head exam: atraumatic, normocephalic and normal inspection Eye Eye exam: Present normal appearance, PERRL and EOMI; Absent scleral icterus ENT ENT exam: Present normal exam and normal external ear exam Neck Neck exam: Present normal inspection and full ROM Chest Chest inspection: Present normal inspection and symmetric chest wall rise Respiratory Respiratory exam: Present normal lung sounds bilaterally; Absent respiratory distress or wheezes Cardiovascular Cardiovascular exam: Present regular rate, normal rhythm and normal heart sounds Abdominal Exam Abdominal exam: Present soft and distention; Absent tenderness, guarding or rebound Extremities Exam Extremities exam: Present normal inspection and full ROM Back Exam Back exam: Present normal inspection and full ROM Neurological Exam Neurological exam: Present alert, oriented X3, CN II-XII intact, reflexes normal and other (5 out of 5 strength in bilateral upper extremities, 5 out of 5 strength in bilateral lower extremities, sensation intact x 4, normal [id number], normal [id number], no dysarthria); Absent motor sensory deficit Psychiatric Psychiatric exam: Present normal affect and normal mood Skin Skin exam: Present warm and dry Medical Decision Making Medical Records Medical records reviewed: Yes I reviewed the patient's medical records. Screening: Per USPSTF and CDC recommendations, given the prevalence of disease in our region, it is our hospital?s policy to screen for HIV and viral Hepatitis for all patients aged 18 and over and those with ongoing risk factors. Jose Inquiry Pt receiving controlled substance: No Vital Signs: 03/28/25 18:24 03/28/25 18:28 03/28/25 18:44 Temperature 98.3 F Temperature Source Oral Pulse Rate 114 H Pulse Rate [Right] 114 H Respiratory Rate 21 18 Blood Pressure 204/122 H 204/122 H Blood Pressure [Right Arm] 224/136 H Blood Pressure Mean [Right Arm] 165 Blood Pressure Source Blood Pressure Source [Right Arm] Automatic Cuff Blood Pressure Position Blood Pressure Position [Right Arm] Sitting 02 Sat by Pulse Oximetry 97 98 Oxygen Delivery Method Room Air Room Air 03/28/25 18:54 03/28/25 19:14 03/28/25 19:22 Temperature Temperature Source Pulse Rate 120 H 77 84 Pulse Rate [Right] Respiratory Rate 18 Blood Pressure 153/101 H 169/93 H Blood Pressure [Right Arm] Blood Pressure Mean [Right Arm] Blood Pressure Source Automatic Cuff Blood Pressure Source [Right Arm] Blood Pressure Position Sitting Blood Pressure Position [Right Arm] 02 Sat by Pulse Oximetry 97 98 Oxygen Delivery Method Room Air 03/28/25 20:03 Temperature Temperature Source Pulse Rate 83 Pulse Rate [Right] Respiratory Rate 18 Blood Pressure 180/105 H Blood Pressure [Right Arm] Blood Pressure Mean [Right Arm] Blood Pressure Source Automatic Cuff Blood Pressure Source [Right Arm] Blood Pressure Position Sitting Blood Pressure Position [Right Arm] 02 Sat by Pulse Oximetry 98 Oxygen Delivery Method Lab Data Lab results reviewed: Yes I reviewed the patient's lab results. Lab Results 03/28/25 18:00: WBC 10.8, RBC 5.19, Hgb 14.4, Hct 44.9, MCV 86.5, MCH 27.7, MCHC 32.1, RDW 15.3, Plt Count 264, MPV 11.5 H, Neut % (Auto) 59.7, Lymph % (Auto) 30.1, [place] % (Auto) 6.7, Eos % (Auto) 1.9, Baso % (Auto) 1.4, Neut # (Auto) 6.5, Lymph # (Auto) 3.3, [place] # (Auto) 0.7, Eos # (Auto) 0.2, Baso # (Auto) 0.2, PT 10.1, INR 0.90, Sodium 136, Potassium 4.8, Chloride 99, Carbon Dioxide 24, Anion Gap 17.8 H, BUN 22 H, Creatinine 1.20 H, Estimated Creat Clear 46, Estimated GFR 45 L, Est GFR ( Amer) 54 L, Glucose 93, Calcium 9.9, Magnesium 2.4 H, Total Bilirubin 0.6, AST 26, ALT 12, Alkaline Phosphatase 110, Troponin I 0.23 H , NT-Pro-B Natriuret Pep 462 H, Total Protein 9.0 H D, Albumin 5.1 H, Globulin 3.9 H, Albumin/Globulin Ratio 1.3 03/28/25 18:00 03/28/25 18:00 Orders (Tests/Meds): ED MEDICATIONS Generic Name Dose Route Start Last Admin Trade Name Freq PRN Reason Stop Dose Admin Aspirin 324 mg 03/28/25 21:53 03/28/25 22:11 Aspirin 81mg Chewable Tablet PO 03/28/25 21:54 324 mg ONCE ONE Administration Nicardipine HCl 25 mg/ Sodium 250 mls @ 50 mls/hr 03/28/25 22:32 Chloride IV 04/27/25 22:31 .Q5H ELAINE Protocol 5 MG/HR Discontinued Medications Generic Name Dose Route Start Last Admin Trade Name Freq PRN Reason Stop Dose Admin Iopamidol 160 ml 03/28/25 19:02 03/28/25 19:04 Iopamidol-370 (76%);100ml Bottle IV 03/28/25 19:03 160 ml ONCE ONE Administration Labetalol HCl 10 mg 03/28/25 18:40 03/28/25 18:44 Labetalol 20mg/4ml Syringe IV 03/28/25 18:41 10 mg ONCE ONE Administration Sodium Chloride 10 ml 03/28/25 19:02 03/28/25 19:03 Sodium Chloride 0.9% 10ml Syr (Rad Only) IV 03/28/25 19:03 10 ml ONCE ONE Administration Sodium Chloride 100 ml 03/28/25 19:02 03/28/25 19:04 0.9 % Sodium Chloride 50 Ml Vial IV 03/28/25 19:03 100 ml ONCE ONE Administration ORDERS Category Date Time Status CT angio abdomen pelvis Stat Cat Scan 03/28/25 18:[address] angio head Stat Cat Scan 03/28/25 18:[address] angio neck Stat Cat Scan 03/28/25 18:[address] head/brain wo con Stat Cat Scan 03/28/25 18:25 Completed CTA Chest [CT angio chest - dissection] Stat Cat Scan 03/28/25 18:25 Completed BNP [NT Pro Brain Natriuretic Pep.] Stat Lab 03/28/25 18:00 Completed CBC w/Auto Diff [Complete Blood Count Auto Diff] Stat Lab 03/28/25 18:00 Completed CMP [Comprehensive Metabolic Panel] Stat Lab 03/28/25 18:00 Completed INR [Prothrombin Time INR] Stat Lab 03/28/25 18:00 Completed MAG [Magnesium] Stat Lab 03/28/25 18:00 Completed Trop I [Troponin I] Stat Lab 03/28/25 18:00 Completed Troponin I Q3H Lab 03/28/25 21:17 Completed Troponin I Q3H Lab 03/29/25 00:30 Ordered Medical Decision Narrative: Patient is a 69-year-old female who presented to the emergency department with headache and chest pain. On arrival, patient was significantly hypertensive, vital signs were otherwise unremarkable. Differential includes but not limited to: CBC shows no leukocytosis, hemoglobin was stable. CMP was unremarkable. INR normal. Magnesium normal. Initial troponin 0.23, second troponin 1.84. BNP 462. CT head, CTA head and neck as well as CT chest and abdomen were obtained given patient significant hypertension,. Patient was given initially 10 of labetalol on arrival. Patient CT head showed concern for possible hypoattenuating lesions in the occipital lobes but unclear if artifact versus subacute or acute infarct given not seen on CTAs. Patient had significant severe stenosis of the head on multiple vessels. Patient had chronic vertebral artery stenosis. Patient had no large vessel occlusion. Given concern for hypertensive emergency as well as possible TIAs needing an MRI as well as further blood pressure management felt that patient warranted admission. Patient had two episodes of what appeared to be small TIAs with difficulty speech here in the emergency department. Given this, our hospitalist felt that patient warranted transfer for further neurologic workup. Initially cardiology was consulted given patient's elevated [place] of 0.32-1.84. They had recommended nitroprusside but after discussion with neurology they wanted Cardene. Goal of patient's blood pressure to be no lower than 180. Patient's EKG was reviewed and interpreted by myself and showed normal sinus rhythm without acute ST or T wave changes concerning for ischemia. At this time, patient was accepted to the [facility] after discussion with multiple hospitals. Critical Care Critical Care Time Critical Care Time: Yes Attestation: On 03/28/25, the high probability of a clinically significant, sudden or life threatening deterioration of the following system(s) required my full and direct attention, intervention and personal management. The time I documented below is in addition to time spent performing reported procedures but includes the following listed in this critical care notation. Total Time Total Critical Care Time: 35
--- NOTE | 2025-03-28 18:25 | CT_ITS ---
PROCEDURE INFORMATION: Exam: CTA Chest With Contrast Exam date and time: 03/28/2025 7:07 PM Age: 69 years old Clinical indication: Pain; Chest pressure; Additional info: Chest pain, hypertensive TECHNIQUE: Imaging protocol: Computed tomographic angiography of the chest with contrast. Exam focused on the arteries. 3D rendering (Not supervised by radiologist): MIP and/or 3D reconstructed images were created by the technologist. Radiation optimization: All CT scans at this facility use at least one of these dose optimization techniques: automated exposure control; mA and/or kV adjustment per patient size (includes targeted exams where dose is matched to clinical indication); or iterative reconstruction. Contrast material: ISOVUE; Contrast volume: 80 ml; Contrast route: INTRAVENOUS (IV); COMPARISON: CT ANGIO CHEST 12/06/2024 4:19 PM FINDINGS: Pulmonary arteries: Normal. No pulmonary emboli. Aorta: Moderate mixed calcific and noncalcified atherosclerotic disease of the thoracolumbar spine with ectasia of the descending thoracic aorta measuring 3.1 cm. No evidence of dissection. Lungs: Unremarkable. No consolidation. No masses. Pleural spaces: Unremarkable. No pneumothorax. No pleural effusion. Heart: Unremarkable. No cardiomegaly. No pericardial effusion. Coronary arteries: Moderate three-vessel calcific atherosclerotic disease of the coronary arteries. Lymph nodes: Unremarkable. No enlarged lymph nodes. Bones/joints: Unremarkable. No acute fracture. Soft tissues: Unremarkable. IMPRESSION: Moderate mixed calcific and noncalcified atherosclerotic disease of the thoracolumbar spine with ectasia of the descending thoracic aorta measuring 3.1 cm. No evidence of dissection.
--- NOTE | 2025-03-28 18:25 | CT_ITS ---
PROCEDURE INFORMATION: Exam: CTA Neck With Contrast Exam date and time: 03/28/2025 7:04 PM Age: 69 years old Clinical indication: Pain; Headache; Additional info: HTN, headache TECHNIQUE: Imaging protocol: Computed tomographic angiography of the neck with contrast. Exam focused on the cervical segments of the vasculature. 3D rendering (Not supervised by radiologist): MIP and/or 3D reconstructed images were created by the technologist. Radiation optimization: All CT scans at this facility use at least one of these dose optimization techniques: automated exposure control; mA and/or kV adjustment per patient size (includes targeted exams where dose is matched to clinical indication); or iterative reconstruction. Contrast material: ISOVUE; Contrast volume: 80 ml; Contrast route: INTRAVENOUS (IV); COMPARISON: 1. CT ANGIO HEAD 03/28/2025 7:[address] ANGIO CHEST 12/06/2024 4:19 PM FINDINGS: Right common carotid artery: No stenosis. No dissection or occlusion. Right internal carotid artery: Prominent calcific plaque in right carotid bulb with mild stenosis. No dissection or occlusion. Calcific plaque at origin of right ICA, with mild stenosis, less than 50% by NASCET criteria. No occlusion. No dissection. Right external carotid artery: No occlusion or stenosis of the origin. Left common carotid artery: No stenosis. No dissection or occlusion. Left internal carotid artery: No stenosis of the extracranial segment. No dissection or occlusion. Left external carotid artery: No occlusion or stenosis of the origin. Right vertebral artery: Chronic occlusion of right vertebral artery, with reconstitution distally near the C1-C2 level. Left vertebral artery: Dominant left vertebral artery. No stenosis. No dissection or occlusion. Thyroid: Multiple subcentimeter thyroid nodules; no routine follow-up recommended. Soft tissues: Normal. No significant soft tissue swelling. Bones/joints: No acute fracture. Lungs: Minimal biapical scarring. IMPRESSION: 1. Chronic occlusion of right vertebral artery, with reconstitution distally near the C1-C2 level. The proximal right vertebral artery is also occluded on the prior CTA chest from 12/06/2024. 2. Mild stenosis in right carotid bulb. 3. Mild stenosis at origin of right ICA, less than 50% by NASCET criteria. COMMENTS: Consistent with the [employer]'s Incidental Findings Committee white paper (J Am [place] Radiol 2015): In patients aged 35 years and older with an incidental thyroid nodule equal to or greater than 1.[address], MRI or extrathyroidal US, further evaluation with dedicated thyroid US is recommended for patients with normal life expectancy and without comorbidities. For smaller nodules without suspicious features, no further evaluation or follow up is recommended. REFERENCES: NASCET CRITERIA. The degree of stenosis in the cervical segment of the internal carotid artery is based on NASCET criteria. Normal is no stenosis. Mild is less than 50% stenosis. Moderate is 50-69% stenosis. Severe is 70% to 99% stenosis. Total occlusion is no detectable patent lumen.
--- NOTE | 2025-03-28 18:25 | CT_ITS ---
PROCEDURE INFORMATION: Exam: CT Head Without Contrast Exam date and time: 03/28/2025 7:02 PM Age: 69 years old Clinical indication: Pain; Headache; Additional info: HTN, headache TECHNIQUE: Imaging protocol: Computed tomography of the head without contrast. Radiation optimization: All CT scans at this facility use at least one of these dose optimization techniques: automated exposure control; mA and/or kV adjustment per patient size (includes targeted exams where dose is matched to clinical indication); or iterative reconstruction. COMPARISON: CT ANGIO HEAD 03/28/2025 7:04 PM FINDINGS: Brain: Suggestion of hypoattenuation in both occipital lobes posteriorly, with loss of phelps-white attenuation. No acute intracranial hemorrhage. No midline shift or mass effect. Cerebral ventricles: No ventriculomegaly. Paranasal sinuses: Visualized paranasal sinuses are clear. Mastoid air cells: Visualized mastoid air cells are clear. Bones: No acute fracture. Soft tissues: Unremarkable. IMPRESSION: 1. Suggestion of hypoattenuation in both occipital lobes posteriorly, with loss of phelps-white attenuation. I do not appreciate this on the accompanying CTA, and given the symmetric appearance, could be an artifact. However, difficult to exclude acute/subacute infarcts or other underlying pathology. Consider further evaluation with MRI. 2. No acute intracranial hemorrhage.
--- NOTE | 2025-03-28 18:25 | CT_ITS ---
PROCEDURE INFORMATION: Exam: CTA Abdomen and Pelvis With Contrast Exam date and time: 03/28/2025 7:07 PM Age: 69 years old Clinical indication: Abdominal pain; Generalized; Additional info: HTN, chest pain TECHNIQUE: Imaging protocol: Computed tomographic angiography of the abdomen and pelvis with contrast. Exam focused on the arteries. 3D rendering (Not supervised by radiologist): MIP and/or 3D reconstructed images were created by the technologist. Radiation optimization: All CT scans at this facility use at least one of these dose optimization techniques: automated exposure control; mA and/or kV adjustment per patient size (includes targeted exams where dose is matched to clinical indication); or iterative reconstruction. Contrast material: ISOVUE; Contrast volume: 80 ml; Contrast route: INTRAVENOUS (IV); COMPARISON: CT ANGIO ABDOMEN PELVIS 12/08/2024 10:53 AM FINDINGS: Aorta: Moderate mixed calcific and noncalcified atherosclerotic disease of the abdominal aorta with infrarenal abdominal aortic aneurysmal dilatation measuring 2.9 cm, having posterior wall thrombosis. 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 Renal arteries: There is stenting of the right renal artery. Right iliac arteries: No occlusion or significant stenosis. Left iliac arteries: No occlusion or significant stenosis. Liver: No mass. Gallbladder and biliary ducts: Unremarkable. No calcified stones. No ductal dilation. Pancreas: Unremarkable. No mass. No ductal dilation. Spleen: Multiple benign-appearing calcific densities of the spleen. Adrenal glands: Unremarkable. No mass. Kidneys and ureters: Multiple left renal Bosniak 1 cystic lesions having homogeneous and fluid density (-9-20 HU), no septations or calcifications, having rock smooth and thin. Largest measures 1.2 cm. No follow-up recommended. Stomach and bowel: Diverticula are scattered throughout the colon without inflammatory changes. Appendix: No evidence of appendicitis. Intraperitoneal space: Unremarkable. No free air. No significant fluid collection. Lymph nodes: Unremarkable. No enlarged lymph nodes. Urinary bladder: Unremarkable. No mass. Reproductive: Unremarkable as visualized. Bones/joints: Moderate loss of intervertebral disc space with degenerative changes involving L3 through S1. Soft tissues: Unremarkable. 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 IMPRESSION: 1. 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 2. Moderate mixed calcific and noncalcified atherosclerotic disease of the abdominal aorta with infrarenal abdominal aortic aneurysmal dilatation measuring 2.9 cm, having posterior wall thrombosis. 3. 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 4. 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
--- NOTE | 2025-03-28 18:25 | CT_ITS ---
PROCEDURE INFORMATION: Exam: CTA Head With Contrast, Arteriography Exam date and time: 03/28/2025 7:04 PM Age: 69 years old Clinical indication: Pain; Other: HTN; Headache; Additional info: Headache, HTN TECHNIQUE: Imaging protocol: Computed tomographic angiography of the head with contrast. Exam focused on the arteries. 3D rendering (Not supervised by radiologist): MIP and/or 3D reconstructed images were created by the technologist. Radiation optimization: All CT scans at this facility use at least one of these dose optimization techniques: automated exposure control; mA and/or kV adjustment per patient size (includes targeted exams where dose is matched to clinical indication); or iterative reconstruction. Contrast material: ISOVUE; Contrast volume: 80 ml; Contrast route: INTRAVENOUS (IV); COMPARISON: CT HEAD/BRAIN WO CON 03/28/2025 7:02 PM FINDINGS: ANTERIOR CIRCULATION: Right internal carotid artery: Intracranial segment is patent with no significant stenosis. No aneurysm. Right middle cerebral artery: Severe short-segment stenosis in superior right M2 segment. Severe short-segment stenosis in inferior right M2 segment. Kjpw-we-jbnokhja multifocal stenosis in right M3 branches. No definite right MCA occlusion. No aneurysm. Right anterior cerebral artery: Iupx-mq-ieeebbdc multifocal stenosis in right A3 segment. No right BRENNON occlusion. No aneurysm. Left internal carotid artery: Intracranial segment is patent with no significant stenosis. No aneurysm. Left middle cerebral artery: Short-segment critical stenosis with near total occlusion in inferior left M2 segment; mild multifocal stenosis in the M3 segments distal to this. The other left M2 segment appears relatively patent, but suggestion of short-segment moderate stenosis in the two proximal M3 branches arising from this. No definite left MCA occlusion. No aneurysm. Left anterior cerebral artery: Lqoe-fy-znllopcb multifocal stenosis in left A3. No left BRENNON occlusion. No aneurysm. POSTERIOR CIRCULATION: Right vertebral artery: Mild stenosis in hypoplastic right vertebral artery. No right vertebral artery occlusion. No aneurysm. Left vertebral artery: Evgbxukt-ob-oqwafm focal stenosis in the dominant left vertebral artery. No left vertebral artery occlusion. No aneurysm. Basilar artery: No occlusion or significant stenosis. No aneurysm. Right posterior cerebral artery: Mild multifocal stenosis in right GRAPHIC ENGINEER. No right GRAPHIC ENGINEER occlusion. No aneurysm. Left posterior cerebral artery: Multifocal stenosis in left GRAPHIC ENGINEER, including severe stenosis in the P2 segment. No definite left GRAPHIC ENGINEER occlusion. No aneurysm. Brain: No definite mass, mass effect, or midline shift. Cerebral ventricles: No ventriculomegaly. Bones/joints: No acute fracture. Soft tissues: Unremarkable. IMPRESSION: 1. No definite large vessel occlusion, but significant multivessel intracranial stenosis. 2. Short-segment critical stenosis with near total occlusion in inferior left M2 segment; mild multifocal stenosis in the M3 segments distal to this. 3. The other left M2 segment appears relatively patent, but suggestion of short-segment moderate stenosis in the two proximal M3 branches arising from this. 4. Sxqw-tv-fqsfdnat multifocal stenosis in left A3. 5. Severe short-segment stenosis in superior right M2 segment. 6. Severe short-segment stenosis in inferior right M2 segment. 7. Ojsl-qn-aflfwytj multifocal stenosis in right M3 branches. 8. Svvb-gy-skprbype multifocal stenosis in right A3 segment. 9. Lxoxqzrg-qg-fisohz focal stenosis in the dominant left vertebral artery. 10. Mild stenosis in hypoplastic right vertebral artery. 11. Multifocal stenosis in left GRAPHIC ENGINEER, including severe stenosis in the P2 segment. 12. Mild multifocal stenosis in right GRAPHIC ENGINEER.
--- NOTE | 2025-03-28 18:33 | ECG_ITS ---
APPROVED REPORT Exam: Resting ECG HR:99 bpm ECG Measurements Heart Rate 99 AXES DC 124 P 69 QRSd 89 QRS -56 QT 353 T 72 QTc 409 Conclusion SINUS RHYTHM LEFT AXIS DEVIATION [QRS AXIS < -30] LOW QRS VOLTAGE IN PRECORDIAL LEADS [QRS DEFLECTION < 1.0 mV IN CHEST LEADS] No STEMI Electronically signed by : HIRA WILEY, 03/31/2025 03:10:49
[2025-03-28 18:36] LABS: Hematocrit 44.9 % (37.0-47.0); Hemoglobin 14.4 g/dL (12.2-16.2); Immature Granulocytes % 0.2 %; Mean Corpuscular HGB Conc 32.1 g/dL (31.8-35.4); Mean Corpuscular Hemoglobin 27.7 pg (27.0-31.2); Mean Corpuscular Volume 86.5 fl (81-99); Nucleated Red Blood Cells % 0 %; Platelet Count 264 K/mm3 (142-424); Red Blood Count 5.19 M/mm3 (4.20-5.40); Red Cell Distribution Width-SD 48.5 fL; White Blood Count 10.8 K/mm3 (4.8-10.8)
[2025-03-28 18:44] LABS: INR 0.90 (0.9-1.1); Prothrombin Time 10.1 seconds (10.1-12.5)
[2025-03-28] MEDS: LABETALOL 20MG/4ML SYRINGE 10 MG IV (18:44)
[2025-03-28 18:46] LABS: Alanine Aminotransferase 12 U/L (12-78); Albumin Level 5.1 g/dl (3.5-5.0); Albumin/Globulin Ratio 1.3 (1.1-1.8); Alkaline Phosphatase 110 U/L (38-126); Anion Gap 17.8 mEq/L (5-15); Aspartate Amino Transferase 26 U/L (14-36); Bilirubin,Total 0.6 mg/dl (0.2-1.3); Blood Urea Nitrogen 22 mg/dl (7-17); Calcium 9.9 mg/dl (8.4-10.2); Carbon Dioxide 24 mmol/L (22.0-30.0); Chloride 99 mmol/L (98-107); Creatinine Clearance Estimated 46 mL/min (50-200); Creatinine,Serum 1.20 mg/dl (0.52-1.04); Estimated Glomerular Filt Rate 45 ml/min (>60); GFR (African American) 54 ML/MIN (>60); Globulin 3.9 g/dL (1.3-3.2); Glucose 93 mg/dl (74-100); Magnesium 2.4 mg/dl (1.6-2.3); Potassium 4.8 mmoL/L (3.5-5.1); Sodium 136 mmol/L (136-145); Total Protein,Serum 9.0 g/dl (6.3-8.2)
[2025-03-28 18:57] LABS: NT Pro Brain Natriuretic Pep. 462 pg/mL (0-125)
--- NOTE | 2025-03-28 19:00 | PC.NURSE ---
PT was taken to scans
[2025-03-28 19:02] LABS: Troponin I 0.23 ng/ml (0.00-0.034)
[2025-03-28] MEDS: SODIUM CHLORIDE 0.9% 10ML SYR (RAD ONLY) 10 ML IV (19:03)
[2025-03-28] MEDS: 0.9 % SODIUM CHLORIDE 50 ML VIAL 100 ML IV (19:04)
[2025-03-28] MEDS: IOPAMIDOL-370 (76%);100ML BOTTLE 160 ML IV (19:04)
--- NOTE | 2025-03-28 20:54 | PC.NURSE ---
Spoke with [facility] [place] for stroke navigator
--- NOTE | 2025-03-28 21:08 | PC.NURSE ---
Called [facility] for a possible transfer. stated they would call back
[2025-03-28 21:50] LABS: Troponin I 1.84 ng/ml (0.00-0.034)
--- NOTE | 2025-03-28 21:57 | ECG_ITS ---
APPROVED REPORT Exam: Resting ECG HR:85 bpm ECG Measurements Heart Rate 85 AXES AK 152 P 73 QRSd 75 QRS -72 QT 389 T 63 QTc 431 Conclusion SINUS RHYTHM LEFT AXIS DEVIATION [QRS AXIS < -30] MODERATE T-WAVE ABNORMALITY, CONSIDER LATERAL ISCHEMIA [-0.1+ mV T-WAVE IN I/aVL/V5/V6] No STEMI Electronically signed by : HIRA WILEY, 03/31/2025 03:12:04
--- NOTE | 2025-03-28 21:58 | PC.NURSE ---
ER called to give report; Room is not ready for patient, so report declined at this time ([facility] has to clean room)
[2025-03-28] MEDS: ASPIRIN 81MG CHEWABLE TABLET 324 MG PO (22:11)
--- NOTE | 2025-03-28 22:29 | PC.NURSE ---
[facility] contacted regarding transfer for this patient. on phone with Dr. Chowdary.
[2025-03-28 22:47] LABS: C-Reactive Protein 13.0 mg/L (0-4)
--- NOTE | 2025-03-28 23:16 | PC.NURSE ---
Report called to SHERLYN Robison RN @[phone]
== END 2025-03-28 23:36 | disposition short-term general hospital (02) ==
LOC: ER 18:44 → ICU 20:47 → ER 23:21
PROVIDERS: Emergency Provider Student in an Organized Health Care Education/Training Program
DX: I16.1 Hypertensive emergency (principal); G45.9 Transient cerebral ischemic attack, unspecified; I66.13 Occlusion and stenosis of bilateral anterior cerebral arteries; I66.03 Occlusion and stenosis of bilateral middle cerebral arteries; I66.23 Occlusion and stenosis of bilateral posterior cerebral arteries; R51.9 Headache, unspecified; R07.9 Chest pain, unspecified; F17.210 Nicotine dependence, cigarettes, uncomplicated; I10 Essential (primary) hypertension; E78.5 Hyperlipidemia, unspecified
CPT/HCPCS: 70450; 70496; 70498; 71275; 74174; 80053; 83735; 83880; 84484; 85025; 85610; 85651; 86140; 93005; 96374; 99285; 99291; J1920; Q9967